=== PATIENT | male | born 1950 | race Caucasian/White ===

== ENCOUNTER 2017-05-11 16:40 | Inpatient (IN) | payer OTHER ==
[~2017-05-11] VITALS: Ht 177.8 cm; Wt 116.2 kg
[2017-05-11] MEDS ORDERED: SODIUM CHLORIDE 0.9% 1,000ML IVBOLUS ONE (17:30)
[2017-05-11] MEDS ORDERED: SODIUM CHLORIDE FLUSH 10ML SYR IVF ONE (17:30)
[2017-05-11] MEDS ORDERED: PANT40TA5 PO (17:31)
[2017-05-11] MEDS ORDERED: INSU100V8 SQ (17:31)
[2017-05-11] MEDS ORDERED: METF500T PO (17:31)
[2017-05-11] MEDS ORDERED: AMLO10TA4 PO (17:31)
[2017-05-11] MEDS ORDERED: TAMS-11 PO (17:31)
[2017-05-11] MEDS ORDERED: CYCL1DRO EACHEYE (17:31)
[2017-05-11] MEDS ORDERED: METO25TA35 PO (17:31)
[2017-05-11] MEDS ORDERED: ATOR20TA9 PO (17:31)
[2017-05-11] MEDS ORDERED: GLIP5TAB3 PO (17:31)
[2017-05-11] MEDS ORDERED: LISI20TA PO (17:31)
[2017-05-11] MEDS ORDERED: GABA300C10 PO (17:31)
[2017-05-11 17:54] LABS: BASOPHILS # (AUTO) 0.02 x10^3/uL (0-0.1); BASOPHILS % (AUTO) 0 % (0-1); EOSINOPHILS % (AUTO) 0 % (1-7); LYMPHOCYTES # (AUTO) 1.66 x10^3/uL (1-3.4); LYMPHOCYTES % (AUTO) 12 % (22-44); MD NO; MEAN CORPUSCULAR HEMOGLOBIN 26.6 pg (27.5-34.5); MEAN CORPUSCULAR HGB CONC 32.9 g/dL (33.2-36.2); MEAN CORPUSCULAR VOLUME 81.1 fL (81-97); MONOCYTES # (AUTO) 0.86 x10^3/uL (0.2-0.8); MONOCYTES % (AUTO) 6 % (2-9); NEUTROPHILS # (AUTO) 10.85 x10^3/uL (1.8-6.8); NEUTROPHILS % (AUTO) 81 % (42-75); PLATELET COUNT 294 x10^3/uL (130-400); RED BLOOD COUNT 4.81 x10^6/uL (4.38-5.82); RED CELL DISTRIBUTION WIDTH 15.9 % (9.4-14.8)
[2017-05-11 18:06] LABS: ALANINE AMINOTRANSFERASE 19 U/L (12-78); ALBUMIN 3.5 g/dL (3.4-5.0); ANION GAP 11 mmol/L (5-15); CALCIUM 9.6 mg/dL (8.5-10.1); CHLORIDE 105 mmol/L (98-107); CREATININE 1.43 mg/dL (0.7-1.3)
[2017-05-11 18:10] LABS: ALKALINE PHOSPHATASE 103 U/L (45-117); BILIRUBIN,TOTAL 0.7 mg/dL (0.2-1.0); TOTAL PROTEIN 8.2 g/dL (6.4-8.2); TROPONIN I < 0.015 ng/mL (0.000-0.045)
[2017-05-11] MEDS ORDERED: OMNIPAQUE 350 MG/ML, 100ML BOTTLE ONE (20:00)
[2017-05-11 20:30] LABS: MICROSCOPIC AUTO
[2017-05-11 20:35] LABS: CULTURE INDICATED? NO
[2017-05-11] MEDS ORDERED: ONDANSETRON 2MG/ML, 2ML IVPush ONE (21:30)
[2017-05-11] MEDS ORDERED: HYDROmorphone 1 MG/ML, 1ML IVPush PRN (21:30)
[2017-05-11] MEDS ORDERED: ONDANSETRON 2MG/ML, 2ML ONE (21:51)
[2017-05-11] MEDS ORDERED: DILTIAZEM 5 MG/ML, 5ML ONE (21:51)
[2017-05-11] MEDS ORDERED: HYDROmorphone 1 MG/ML, 1ML ONE (21:51)
[2017-05-11] MEDS ORDERED: DILTIAZEM 5 MG/ML, 5ML IVPush ONE (22:00)
[2017-05-11] MEDS ORDERED: LABETALOL 5MG/ML, 20ML IVPush PRN (23:00)
[2017-05-11] MEDS ORDERED: TEMAZEPAM 15 MG CAPSULE PO PRN (23:00)
[2017-05-11] MEDS ORDERED: ONDANSETRON ODT 4 MG PO PRN (23:00)
[2017-05-12 00:04] VITALS: BP 153/75
[2017-05-12] MEDS ORDERED: OXYC5CAP2 PO (00:13)
[2017-05-12] MEDS ORDERED: ENOXAPARIN 120MG/0.8ML SQ SCH (01:00)
[2017-05-12] MEDS: DILTIAZEM 125 MG in SODIUM CHLORIDE 0.9% 100 ML IV SCH ×2 (01:23→16:01)
[2017-05-12 01:36] VITALS: BP 155/81
[2017-05-12] MEDS: OXYcodone IR 5MG TABLET PO PRN ×2 (02:16→13:15)
[2017-05-12 02:50] VITALS: BP 152/82
[2017-05-12 05:14] LABS: BASOPHILS # (AUTO) 0.21 x10^3/uL (0-0.1); BASOPHILS % (AUTO) 2 % (0-1); EOSINOPHILS # (AUTO) 0.01 x10^3/uL (0-0.4); EOSINOPHILS % (AUTO) 0 % (1-7); LYMPHOCYTES # (AUTO) 1.76 x10^3/uL (1-3.4); LYMPHOCYTES % (AUTO) 13 % (22-44); MD NO; MEAN CORPUSCULAR HEMOGLOBIN 26.7 pg (27.5-34.5); MEAN CORPUSCULAR VOLUME 80.9 fL (81-97); MONOCYTES % (AUTO) 8 % (2-9); NEUTROPHILS # (AUTO) 10.75 x10^3/uL (1.8-6.8); NEUTROPHILS % (AUTO) 78 % (42-75); PLATELET COUNT 269 x10^3/uL (130-400); RED BLOOD COUNT 4.64 x10^6/uL (4.38-5.82); RED CELL DISTRIBUTION WIDTH 15.8 % (9.4-14.8)
[2017-05-12 05:24] LABS: ANION GAP 10 mmol/L (5-15); CALCIUM 9.3 mg/dL (8.5-10.1); CHLORIDE 104 mmol/L (98-107); CREATININE 1.13 mg/dL (0.7-1.3)
[2017-05-12 06:57] VITALS: BP 155/85
[2017-05-12] MEDS: INSULIN GLARGINE 100 UNITS/ML, PEN SQ-INSULIN SCH ×2 (08:30→23:09)
[2017-05-12] MEDS ORDERED: DILTIAZEM 5 MG/ML, 5ML IVPush ONE (08:30)
[2017-05-12] MEDS ORDERED: POTASSIUM CHLORIDE 20 MEQ TAB.ER.PRT PO ONE (08:30)
[2017-05-12] MEDS ORDERED: OXYcodone IR 5MG TABLET PO PRN (08:30)
[2017-05-12] MEDS ORDERED: METOPROLOL TARTRATE 25 MG TABLET PO SCH (09:00)
[2017-05-12] MEDS: METOPROLOL TARTRATE 25 MG TABLET PO SCH ×3 (09:00→22:41)
[2017-05-12] MEDS ORDERED: MAGNESIUM SULFATE PMX 2GM/50ML 50 ML IV ONE (09:00)
[2017-05-12] MEDS ORDERED: POTASSIUM PHOSPHATE 44 MEQ in SODIUM CHLORIDE 0.9% 500 ML IV ONE (09:00)
[2017-05-12] MEDS: CYCLOSPORINE EACHEYE SCH ×2 (09:00→19:40)
[2017-05-12 09:17] LABS: % IRON SATURATION 5 % (20-55); IRON LEVEL 17 mcg/dL (65-175); TOTAL IRON BINDING CAPACITY 322 mcg/dL (250-450)
[2017-05-12] MEDS: TAMSULOSIN 0.4 MG CAP.ER.24H PO SCH (10:11)
[2017-05-12] MEDS: PANTOPROZOLE 40MG TABLET PO SCH (10:11)
[2017-05-12] MEDS: GABAPENTIN 300 MG CAPSULE PO SCH ×3 (10:14→22:41)
[2017-05-12] MEDS: AMLODIPINE 5 MG TABLET PO SCH (10:14)
[2017-05-12] MEDS: LISINOPRIL 20 MG TABLET PO SCH (10:15)
[2017-05-12 12:32] VITALS: BP 139/83
[2017-05-12] MEDS ORDERED: DILTIAZEM 5 MG/ML, 5ML ONE (13:07)
[2017-05-12] MEDS: APIXABAN 5 MG TABLET PO SCH ×2 (13:10→22:40)
[2017-05-12] MEDS ORDERED: GADOBUTROL 10 MMOL/10 ML PFS ONE (14:26)
[2017-05-12] MEDS: metFORMIN XR 500 MG TAB.ER.24H PO SCH (18:02)
[2017-05-12 19:39] VITALS: BP 121/69
[2017-05-12] MEDS: ATORVASTATIN 20 MG TABLET PO SCH (22:41)
[2017-05-13 00:58] VITALS: BP 105/59
[2017-05-13] MEDS: METOPROLOL TARTRATE 25 MG TABLET PO SCH ×4 (04:27→22:33)
[2017-05-13 04:28] VITALS: BP 111/68
[2017-05-13 05:28] LABS: CHLORIDE 106 mmol/L (98-107)
[2017-05-13 05:35] LABS: BASOPHILS # (AUTO) 0.04 x10^3/uL (0-0.1); BASOPHILS % (AUTO) 0 % (0-1); EOSINOPHILS # (AUTO) 0.06 x10^3/uL (0-0.4); EOSINOPHILS % (AUTO) 1 % (1-7); LYMPHOCYTES # (AUTO) 1.59 x10^3/uL (1-3.4); LYMPHOCYTES % (AUTO) 13 % (22-44); MD NO; MEAN CORPUSCULAR HEMOGLOBIN 26.5 pg (27.5-34.5); MEAN CORPUSCULAR HGB CONC 32.5 g/dL (33.2-36.2); MEAN CORPUSCULAR VOLUME 81.8 fL (81-97); MEAN PLATELET VOLUME 8.2 fL (7.4-10.4); MONOCYTES # (AUTO) 1.08 x10^3/uL (0.2-0.8); MONOCYTES % (AUTO) 9 % (2-9); NEUTROPHILS % (AUTO) 77 % (42-75); PLATELET COUNT 255 x10^3/uL (130-400); RED BLOOD COUNT 4.15 x10^6/uL (4.38-5.82); RED CELL DISTRIBUTION WIDTH 15.4 % (9.4-14.8)
[2017-05-13 05:45] LABS: ANION GAP 9 mmol/L (5-15); CALCIUM 8.9 mg/dL (8.5-10.1); CREATININE 1.21 mg/dL (0.7-1.3)
[2017-05-13 06:43] VITALS: BP 130/75
[2017-05-13] MEDS: CYCLOSPORINE EACHEYE SCH ×2 (08:29→21:00)
[2017-05-13] MEDS: APIXABAN 5 MG TABLET PO SCH ×2 (09:09→22:32)
[2017-05-13] MEDS: PANTOPROZOLE 40MG TABLET PO SCH (09:09)
[2017-05-13] MEDS: LISINOPRIL 20 MG TABLET PO SCH (09:09)
[2017-05-13] MEDS: TAMSULOSIN 0.4 MG CAP.ER.24H PO SCH (09:09)
[2017-05-13] MEDS: AMLODIPINE 5 MG TABLET PO SCH (09:10)
[2017-05-13] MEDS: GABAPENTIN 300 MG CAPSULE PO SCH ×3 (09:10→22:32)
[2017-05-13 10:45] VITALS: BP 102/68
[2017-05-13] MEDS: ACETAMINOPHEN 325 MG TABLET PO PRN (12:59)
[2017-05-13 13:25] VITALS: BP 111/70
[2017-05-13] MEDS: metFORMIN XR 500 MG TAB.ER.24H PO SCH (16:14)
[2017-05-13 19:13] VITALS: BP 115/73
[2017-05-13] MEDS: INSULIN GLARGINE 100 UNITS/ML, PEN SQ-INSULIN SCH (21:00)
[2017-05-13] MEDS: ATORVASTATIN 20 MG TABLET PO SCH (22:33)
[2017-05-14 00:36] VITALS: BP 115/71
[2017-05-14] MEDS: METOPROLOL TARTRATE 25 MG TABLET PO SCH ×4 (04:50→21:25)
[2017-05-14 06:51] VITALS: BP 130/80
[2017-05-14] MEDS: CYCLOSPORINE EACHEYE SCH ×2 (09:12→21:00)
[2017-05-14] MEDS: TAMSULOSIN 0.4 MG CAP.ER.24H PO SCH (09:22)
[2017-05-14] MEDS: GABAPENTIN 300 MG CAPSULE PO SCH ×3 (09:22→21:25)
[2017-05-14] MEDS: APIXABAN 5 MG TABLET PO SCH ×2 (09:22→21:25)
[2017-05-14] MEDS: AMLODIPINE 5 MG TABLET PO SCH (09:22)
[2017-05-14] MEDS: LISINOPRIL 20 MG TABLET PO SCH (09:22)
[2017-05-14] MEDS: PANTOPROZOLE 40MG TABLET PO SCH (09:22)
[2017-05-14 13:20] VITALS: BP 120/81
[2017-05-14] MEDS: metFORMIN XR 500 MG TAB.ER.24H PO SCH (16:54)
[2017-05-14] MEDS: KETOROLAC 30 MG/1 ML IVPush PRN (17:26)
[2017-05-14 21:12] VITALS: BP 134/77
[2017-05-14] MEDS: ATORVASTATIN 20 MG TABLET PO SCH (21:25)
[2017-05-14] MEDS: INSULIN GLARGINE 100 UNITS/ML, PEN SQ-INSULIN SCH ×2 (21:27→21:34)
[2017-05-15 00:55] VITALS: BP 117/73
[2017-05-15] MEDS: METOPROLOL TARTRATE 25 MG TABLET PO SCH ×4 (03:19→21:17)
[2017-05-15 06:54] VITALS: BP 125/77
[2017-05-15] MEDS: AMLODIPINE 5 MG TABLET PO SCH (09:00)
[2017-05-15] MEDS: APIXABAN 5 MG TABLET PO SCH ×2 (09:00→21:17)
[2017-05-15] MEDS: PANTOPROZOLE 40MG TABLET PO SCH (09:00)
[2017-05-15] MEDS: TAMSULOSIN 0.4 MG CAP.ER.24H PO SCH (09:00)
[2017-05-15] MEDS: GABAPENTIN 300 MG CAPSULE PO SCH ×3 (09:39→21:17)
[2017-05-15] MEDS: LISINOPRIL 20 MG TABLET PO SCH (09:39)
[2017-05-15] MEDS: CYCLOSPORINE EACHEYE SCH ×2 (09:40→21:17)
[2017-05-15] MEDS: INSULIN REGULAR 100 UNITS/ML, 3ML VIAL SQ-INSULIN SCH ×3 (12:09→21:17)
[2017-05-15 14:26] VITALS: BP 126/84
[2017-05-15] MEDS: ACETAMINOPHEN 325 MG TABLET PO PRN ×2 (16:48→21:17)
[2017-05-15] MEDS: DOCUSATE 100 MG CAPSULE PO PRN (16:48)
[2017-05-15 19:24] VITALS: BP 108/68
[2017-05-15] MEDS: ATORVASTATIN 20 MG TABLET PO SCH (21:17)
[2017-05-16 02:00] VITALS: BP 124/74
[2017-05-16] MEDS: METOPROLOL TARTRATE 25 MG TABLET PO SCH ×4 (03:32→21:48)
[2017-05-16] MEDS: ACETAMINOPHEN 325 MG TABLET PO PRN ×2 (05:57→19:28)
[2017-05-16] MEDS: INSULIN REGULAR 100 UNITS/ML, 3ML VIAL SQ-INSULIN SCH ×4 (07:00→19:46)
[2017-05-16 07:15] VITALS: BP 122/73
[2017-05-16 07:36] LABS: BASOPHILS # (AUTO) 0.07 x10^3/uL (0-0.1); BASOPHILS % (AUTO) 1 % (0-1); EOSINOPHILS % (AUTO) 2 % (1-7); HCT (SEDRATE) 34.6 % (39.2-51.8); LYMPHOCYTES % (AUTO) 14 % (22-44); MD NO; MEAN CORPUSCULAR HEMOGLOBIN 26.3 pg (27.5-34.5); MEAN CORPUSCULAR HGB CONC 32.1 g/dL (33.2-36.2); MEAN PLATELET VOLUME 8.1 fL (7.4-10.4); MONOCYTES # (AUTO) 0.86 x10^3/uL (0.2-0.8); MONOCYTES % (AUTO) 7 % (2-9); NEUTROPHILS # (AUTO) 9.92 x10^3/uL (1.8-6.8); NEUTROPHILS % (AUTO) 77 % (42-75); PLATELET COUNT 336 x10^3/uL (130-400); RED BLOOD COUNT 4.21 x10^6/uL (4.38-5.82); RED CELL DISTRIBUTION WIDTH 15.2 % (9.4-14.8)
[2017-05-16 07:43] LABS: ANION GAP 11 mmol/L (5-15); CALCIUM 9.1 mg/dL (8.5-10.1); CHLORIDE 106 mmol/L (98-107); CREATININE 1.19 mg/dL (0.7-1.3)
[2017-05-16] MEDS: APIXABAN 5 MG TABLET PO SCH ×2 (08:17→19:45)
[2017-05-16] MEDS: TAMSULOSIN 0.4 MG CAP.ER.24H PO SCH (08:17)
[2017-05-16] MEDS: AMLODIPINE 5 MG TABLET PO SCH (08:17)
[2017-05-16] MEDS: LISINOPRIL 20 MG TABLET PO SCH (08:17)
[2017-05-16] MEDS: PANTOPROZOLE 40MG TABLET PO SCH (08:17)
[2017-05-16] MEDS: CYCLOSPORINE EACHEYE SCH ×2 (08:17→19:46)
[2017-05-16] MEDS: GABAPENTIN 300 MG CAPSULE PO SCH ×3 (08:17→19:45)
[2017-05-16] MEDS: DOCUSATE 100 MG CAPSULE PO PRN (11:06)
[2017-05-16 17:09] VITALS: BP 124/77
[2017-05-16 18:00] VITALS: BP 155/66
[2017-05-16 19:15] VITALS: BP 125/77
[2017-05-16] MEDS: ATORVASTATIN 20 MG TABLET PO SCH (19:45)
[2017-05-16] MEDS: INSULIN GLARGINE 100 UNITS/ML, PEN SQ-INSULIN SCH (19:46)
[2017-05-17 01:00] VITALS: BP 125/78
[2017-05-17] MEDS: METOPROLOL TARTRATE 25 MG TABLET PO SCH ×4 (04:25→20:02)
[2017-05-17 07:35] VITALS: BP 116/75
[2017-05-17] MEDS: INSULIN REGULAR 100 UNITS/ML, 3ML VIAL SQ-INSULIN SCH ×4 (08:04→20:02)
[2017-05-17 08:11] VITALS: BP 124/79
[2017-05-17] MEDS: AMLODIPINE 5 MG TABLET PO SCH (08:13)
[2017-05-17] MEDS: PANTOPROZOLE 40MG TABLET PO SCH (08:13)
[2017-05-17] MEDS: APIXABAN 5 MG TABLET PO SCH ×2 (08:13→20:01)
[2017-05-17] MEDS: predniSONE 50MG TABLET PO SCH (08:13)
[2017-05-17] MEDS: TAMSULOSIN 0.4 MG CAP.ER.24H PO SCH (08:14)
[2017-05-17] MEDS: LISINOPRIL 20 MG TABLET PO SCH (08:14)
[2017-05-17] MEDS: GABAPENTIN 300 MG CAPSULE PO SCH ×3 (08:14→20:01)
[2017-05-17] MEDS: CYCLOSPORINE EACHEYE SCH ×2 (08:14→20:03)
[2017-05-17] MEDS ORDERED: POLYETHYLENE GLYCOL 17 GM PACKET PO ONE (12:00)
[2017-05-17 12:40] VITALS: BP 120/77
[2017-05-17 16:28] VITALS: BP 110/71
[2017-05-17] MEDS: ATORVASTATIN 20 MG TABLET PO SCH (20:01)
[2017-05-17] MEDS: INSULIN GLARGINE 100 UNITS/ML, PEN SQ-INSULIN SCH (20:02)
[2017-05-17 20:20] VITALS: BP 109/68
[2017-05-18 00:56] VITALS: BP 126/77
[2017-05-18] MEDS: METOPROLOL TARTRATE 25 MG TABLET PO SCH ×4 (02:23→22:05)
[2017-05-18] MEDS: INSULIN REGULAR 100 UNITS/ML, 3ML VIAL SQ-INSULIN SCH ×4 (07:00→22:06)
[2017-05-18] MEDS ORDERED: FENTANYL PF 250 MCG/5ML ONE (07:29)
[2017-05-18] MEDS ORDERED: LIDOCAINE GEL 2%, 5ML ONE (07:29)
[2017-05-18] MEDS ORDERED: MIDAZOLAM 1 MG/ML, 2ML ONE (07:29)
[2017-05-18] MEDS ORDERED: HEPARIN 1,000 UNITS/ML, 30ML ONE (07:38)
[2017-05-18 07:40] VITALS: BP 132/81
[2017-05-18] MEDS ORDERED: methylPREDNISolone *ACETATE* 40 MG/ML ONE (07:50)
[2017-05-18] MEDS ORDERED: THROMBIN 5,000 UNIT VIAL TP ONE (07:50)
[2017-05-18] MEDS ORDERED: EPINEPHRINE 1 MG/ML, 1ML ONE (07:50)
[2017-05-18] MEDS ORDERED: BACITRACIN 50,000 UNIT ONE (07:50)
[2017-05-18] MEDS ORDERED: BUPIVACAINE/PF 0.5% ONE (07:50)
[2017-05-18] MEDS ORDERED: BACITRACIN OINT 500U/GM, 15 GM ONE (07:50)
[2017-05-18] MEDS: PANTOPROZOLE 40MG TABLET PO SCH (08:30)
[2017-05-18] MEDS: GABAPENTIN 300 MG CAPSULE PO SCH ×3 (08:30→22:05)
[2017-05-18] MEDS: TAMSULOSIN 0.4 MG CAP.ER.24H PO SCH (08:30)
[2017-05-18] MEDS: AMLODIPINE 5 MG TABLET PO SCH (08:30)
[2017-05-18] MEDS: LISINOPRIL 20 MG TABLET PO SCH (08:30)
[2017-05-18] MEDS: CYCLOSPORINE EACHEYE SCH ×2 (08:31→22:03)
[2017-05-18] MEDS: predniSONE 50MG TABLET PO SCH (08:31)
[2017-05-18] MEDS: KETOROLAC 30 MG/1 ML IVPush PRN (08:38)
[2017-05-18] MEDS ORDERED: POLYETHYLENE GLYCOL 17 GM PACKET PO PRN (09:00)
[2017-05-18 14:33] VITALS: BP 129/78
[2017-05-18 20:00] VITALS: BP 106/67
[2017-05-18] MEDS: ACETAMINOPHEN 325 MG TABLET PO PRN (22:04)
[2017-05-18] MEDS: ATORVASTATIN 20 MG TABLET PO SCH (22:04)
[2017-05-18] MEDS: INSULIN GLARGINE 100 UNITS/ML, PEN SQ-INSULIN SCH (22:06)
[2017-05-19 02:00] VITALS: BP 108/64
[2017-05-19] MEDS: METOPROLOL TARTRATE 25 MG TABLET PO SCH ×4 (03:30→20:09)
[2017-05-19 06:50] VITALS: BP 105/71
[2017-05-19] MEDS: INSULIN REGULAR 100 UNITS/ML, 3ML VIAL SQ-INSULIN SCH ×4 (07:54→20:12)
[2017-05-19] MEDS: predniSONE 50MG TABLET PO SCH (07:55)
[2017-05-19] MEDS: PANTOPROZOLE 40MG TABLET PO SCH (07:55)
[2017-05-19] MEDS: ACETAMINOPHEN 325 MG TABLET PO PRN (07:55)
[2017-05-19] MEDS: TAMSULOSIN 0.4 MG CAP.ER.24H PO SCH (07:55)
[2017-05-19] MEDS: GABAPENTIN 300 MG CAPSULE PO SCH ×3 (07:55→20:09)
[2017-05-19] MEDS: LISINOPRIL 20 MG TABLET PO SCH (07:56)
[2017-05-19] MEDS: AMLODIPINE 5 MG TABLET PO SCH (07:56)
[2017-05-19] MEDS: CYCLOSPORINE EACHEYE SCH ×2 (07:58→19:56)
[2017-05-19 12:55] VITALS: BP 111/70
[2017-05-19 19:32] VITALS: BP 110/71
[2017-05-19] MEDS: ATORVASTATIN 20 MG TABLET PO SCH (20:09)
[2017-05-19] MEDS: INSULIN GLARGINE 100 UNITS/ML, PEN SQ-INSULIN SCH (20:12)
[2017-05-20 01:47] VITALS: BP 122/78
[2017-05-20] MEDS: METOPROLOL TARTRATE 25 MG TABLET PO SCH ×4 (03:06→23:02)
[2017-05-20] MEDS: ACETAMINOPHEN 325 MG TABLET PO PRN ×3 (03:07→19:53)
[2017-05-20] MEDS: INSULIN REGULAR 100 UNITS/ML, 3ML VIAL SQ-INSULIN SCH ×4 (07:00→19:55)
[2017-05-20] MEDS: CYCLOSPORINE EACHEYE SCH ×2 (08:04→19:45)
[2017-05-20] MEDS: AMLODIPINE 5 MG TABLET PO SCH (08:04)
[2017-05-20] MEDS: GABAPENTIN 300 MG CAPSULE PO SCH ×3 (08:04→23:02)
[2017-05-20] MEDS: LISINOPRIL 20 MG TABLET PO SCH (08:04)
[2017-05-20] MEDS: PANTOPROZOLE 40MG TABLET PO SCH (08:04)
[2017-05-20] MEDS: TAMSULOSIN 0.4 MG CAP.ER.24H PO SCH (08:04)
[2017-05-20] MEDS: predniSONE 50MG TABLET PO SCH (08:04)
[2017-05-20 08:35] VITALS: BP 109/71
[2017-05-20 13:51] VITALS: BP 112/70
[2017-05-20 19:39] VITALS: BP 119/76
[2017-05-20] MEDS: ATORVASTATIN 20 MG TABLET PO SCH (19:53)
[2017-05-20] MEDS: INSULIN GLARGINE 100 UNITS/ML, PEN SQ-INSULIN SCH (19:54)
[2017-05-21 01:26] VITALS: BP 114/74
[2017-05-21] MEDS: ACETAMINOPHEN 325 MG TABLET PO PRN ×2 (01:39→19:50)
[2017-05-21 04:58] VITALS: BP 112/73
[2017-05-21] MEDS: METOPROLOL TARTRATE 25 MG TABLET PO SCH ×4 (05:02→20:18)
[2017-05-21] MEDS: INSULIN REGULAR 100 UNITS/ML, 3ML VIAL SQ-INSULIN SCH ×4 (07:50→20:19)
[2017-05-21 08:22] VITALS: BP 123/72
[2017-05-21] MEDS: GABAPENTIN 300 MG CAPSULE PO SCH ×2 (10:50→17:25)
[2017-05-21] MEDS: AMLODIPINE 5 MG TABLET PO SCH (10:50)
[2017-05-21] MEDS: PANTOPROZOLE 40MG TABLET PO SCH (10:50)
[2017-05-21] MEDS: LISINOPRIL 20 MG TABLET PO SCH (10:50)
[2017-05-21] MEDS: predniSONE 50MG TABLET PO SCH (10:50)
[2017-05-21] MEDS: TAMSULOSIN 0.4 MG CAP.ER.24H PO SCH (10:50)
[2017-05-21] MEDS: CYCLOSPORINE EACHEYE SCH ×2 (10:51→19:50)
[2017-05-21 14:16] VITALS: BP 112/74
[2017-05-21 15:55] LABS: ANA SCREEN NEGATIVE (Negative)
[2017-05-21 18:50] VITALS: BP 106/70
[2017-05-21] MEDS: ATORVASTATIN 20 MG TABLET PO SCH (20:18)
[2017-05-21] MEDS: INSULIN GLARGINE 100 UNITS/ML, PEN SQ-INSULIN SCH (20:18)
[2017-05-22 01:49] VITALS: BP 137/77
[2017-05-22] MEDS: GABAPENTIN 300 MG CAPSULE PO SCH ×4 (01:50→20:46)
[2017-05-22] MEDS: METOPROLOL TARTRATE 25 MG TABLET PO SCH ×4 (01:57→23:23)
[2017-05-22] MEDS: ACETAMINOPHEN 325 MG TABLET PO PRN ×3 (01:58→20:46)
[2017-05-22 04:45] LABS: BASOPHILS # (AUTO) 0.08 x10^3/uL (0-0.1); BASOPHILS % (AUTO) 1 % (0-1); EOSINOPHILS # (AUTO) 0.15 x10^3/uL (0-0.4); EOSINOPHILS % (AUTO) 1 % (1-7); LYMPHOCYTES # (AUTO) 3.08 x10^3/uL (1-3.4); LYMPHOCYTES % (AUTO) 21 % (22-44); MD NO; MEAN CORPUSCULAR HEMOGLOBIN 26.4 pg (27.5-34.5); MEAN CORPUSCULAR HGB CONC 32.6 g/dL (33.2-36.2); MEAN CORPUSCULAR VOLUME 80.8 fL (81-97); MEAN PLATELET VOLUME 8.5 fL (7.4-10.4); MONOCYTES # (AUTO) 0.88 x10^3/uL (0.2-0.8); MONOCYTES % (AUTO) 6 % (2-9); NEUTROPHILS # (AUTO) 10.59 x10^3/uL (1.8-6.8); NEUTROPHILS % (AUTO) 72 % (42-75); PLATELET COUNT 582 x10^3/uL (130-400); RED BLOOD COUNT 4.65 x10^6/uL (4.38-5.82); RED CELL DISTRIBUTION WIDTH 15.6 % (9.4-14.8)
[2017-05-22 04:50] LABS: INTERNATIONAL NORMALIZED RATIO 1.08 (0.93-1.1); PROTHROMBIN TIME 11.1 Seconds (9.6-11.5)
[2017-05-22 04:56] LABS: ANION GAP 7 mmol/L (5-15); CALCIUM 9.4 mg/dL (8.5-10.1); CHLORIDE 108 mmol/L (98-107)
[2017-05-22] MEDS: INSULIN REGULAR 100 UNITS/ML, 3ML VIAL SQ-INSULIN SCH ×4 (07:00→21:00)
[2017-05-22 08:11] VITALS: BP 101/69
[2017-05-22] MEDS: TAMSULOSIN 0.4 MG CAP.ER.24H PO SCH (08:57)
[2017-05-22] MEDS: LISINOPRIL 20 MG TABLET PO SCH (08:57)
[2017-05-22] MEDS: PANTOPROZOLE 40MG TABLET PO SCH (08:57)
[2017-05-22] MEDS: predniSONE 50MG TABLET PO SCH (08:57)
[2017-05-22] MEDS: CYCLOSPORINE EACHEYE SCH ×2 (08:58→20:47)
[2017-05-22] MEDS: AMLODIPINE 5 MG TABLET PO SCH (08:58)
[2017-05-22 14:52] VITALS: BP 116/72
[2017-05-22 18:32] VITALS: BP 100/56
[2017-05-22] MEDS: ATORVASTATIN 20 MG TABLET PO SCH (20:46)
[2017-05-22] MEDS: INSULIN GLARGINE 100 UNITS/ML, PEN SQ-INSULIN SCH (21:29)
[2017-05-22 23:21] VITALS: BP 116/75
[2017-05-23 00:15] VITALS: BP 130/76
[2017-05-23 05:43] VITALS: BP 123/71
[2017-05-23] MEDS: METOPROLOL TARTRATE 25 MG TABLET PO SCH ×4 (05:46→22:03)
[2017-05-23] MEDS: INSULIN REGULAR 100 UNITS/ML, 3ML VIAL SQ-INSULIN SCH ×4 (07:00→20:47)
[2017-05-23 07:42] VITALS: BP 124/79
[2017-05-23] MEDS: SODIUM CHLORIDE 0.9% 1,000 ML IV SCH ×2 (08:32→22:04)
[2017-05-23] MEDS: predniSONE 50MG TABLET PO SCH (09:00)
[2017-05-23] MEDS: CYCLOSPORINE EACHEYE SCH ×2 (09:00→20:48)
[2017-05-23] MEDS: AMLODIPINE 5 MG TABLET PO SCH (09:01)
[2017-05-23] MEDS: GABAPENTIN 300 MG CAPSULE PO SCH ×3 (09:01→20:47)
[2017-05-23] MEDS: TAMSULOSIN 0.4 MG CAP.ER.24H PO SCH (09:01)
[2017-05-23] MEDS: PANTOPROZOLE 40MG TABLET PO SCH (09:02)
[2017-05-23] MEDS: LISINOPRIL 20 MG TABLET PO SCH (09:02)
[2017-05-23] MEDS: ACETAMINOPHEN 325 MG TABLET PO PRN ×2 (09:02→20:47)
[2017-05-23 14:30] VITALS: BP 118/74
[2017-05-23 14:36] LABS: HEMOGLOBIN A1C 6.6 % (4.2-6.3)
[2017-05-23 19:19] VITALS: BP 136/77
[2017-05-23] MEDS: INSULIN GLARGINE 100 UNITS/ML, PEN SQ-INSULIN SCH (20:47)
[2017-05-23] MEDS: ATORVASTATIN 20 MG TABLET PO SCH (20:47)
[2017-05-24 01:30] VITALS: BP 143/81
[2017-05-24] MEDS: METOPROLOL TARTRATE 25 MG TABLET PO SCH ×4 (04:59→22:41)
[2017-05-24 05:37] LABS: BASOPHILS # (AUTO) 0.08 x10^3/uL (0-0.1); BASOPHILS % (AUTO) 1 % (0-1); EOSINOPHILS # (AUTO) 0.21 x10^3/uL (0-0.4); EOSINOPHILS % (AUTO) 2 % (1-7); LYMPHOCYTES # (AUTO) 2.91 x10^3/uL (1-3.4); LYMPHOCYTES % (AUTO) 24 % (22-44); MD NO; MEAN CORPUSCULAR HEMOGLOBIN 25.6 pg (27.5-34.5); MEAN CORPUSCULAR HGB CONC 31.6 g/dL (33.2-36.2); MEAN CORPUSCULAR VOLUME 81.2 fL (81-97); MEAN PLATELET VOLUME 8.1 fL (7.4-10.4); MONOCYTES # (AUTO) 0.71 x10^3/uL (0.2-0.8); MONOCYTES % (AUTO) 6 % (2-9); NEUTROPHILS # (AUTO) 8.32 x10^3/uL (1.8-6.8); NEUTROPHILS % (AUTO) 68 % (42-75); PLATELET COUNT 569 x10^3/uL (130-400); RED BLOOD COUNT 4.68 x10^6/uL (4.38-5.82); RED CELL DISTRIBUTION WIDTH 15.7 % (9.4-14.8)
[2017-05-24 05:38] LABS: ANION GAP 7 mmol/L (5-15); CALCIUM 9.3 mg/dL (8.5-10.1); CHLORIDE 110 mmol/L (98-107); CREATININE 1.12 mg/dL (0.7-1.3)
[2017-05-24] MEDS: INSULIN REGULAR 100 UNITS/ML, 3ML VIAL SQ-INSULIN SCH ×4 (07:00→21:50)
[2017-05-24 07:47] VITALS: BP 130/79
[2017-05-24] MEDS: SODIUM CHLORIDE 0.9% 1,000 ML IV SCH (08:13)
[2017-05-24] MEDS: TAMSULOSIN 0.4 MG CAP.ER.24H PO SCH (08:14)
[2017-05-24] MEDS: CYCLOSPORINE EACHEYE SCH ×2 (08:14→20:58)
[2017-05-24] MEDS: predniSONE 50MG TABLET PO SCH (08:14)
[2017-05-24] MEDS: GABAPENTIN 300 MG CAPSULE PO SCH ×3 (08:14→21:50)
[2017-05-24] MEDS: PANTOPROZOLE 40MG TABLET PO SCH (08:15)
[2017-05-24] MEDS: AMLODIPINE 5 MG TABLET PO SCH (08:15)
[2017-05-24] MEDS: LISINOPRIL 20 MG TABLET PO SCH (08:15)
[2017-05-24] MEDS: ACETAMINOPHEN 325 MG TABLET PO PRN (08:32)
[2017-05-24 11:28] LABS: CLOSTRIDIUM DIFFICILE ANTIGEN NEGATIVE; CLOSTRIDIUM DIFFICILE TOXIN NEGATIVE (Negative)
[2017-05-24 13:41] VITALS: BP 116/76
[2017-05-24] MEDS ORDERED: MIDAZOLAM 1 MG/ML, 2ML ONE (13:53)
[2017-05-24] MEDS ORDERED: FENTANYL PF 250 MCG/5ML ONE (13:53)
[2017-05-24] MEDS ORDERED: PROPOFOL 10 MG/ML, 20ML ONE (13:55)
[2017-05-24] MEDS ORDERED: ROCURONIUM 10 MG/ML,10ML ONE (13:56)
[2017-05-24] MEDS ORDERED: GLYCOPYRROLATE 0.4 MG/2 ML, 2ML ONE (13:57)
[2017-05-24] MEDS ORDERED: NEOSTIGMINE 1 MG/ML, 10ML ONE (13:57)
[2017-05-24] MEDS ORDERED: SODIUM CHLORIDE 0.9% PF 10ML ONE ×3 (13:58→17:34)
[2017-05-24] MEDS ORDERED: CEFAZOLIN 1,000 MG ONE ×2 (13:58)
[2017-05-24] MEDS ORDERED: OXYcodone 5 MG/5 ML ORAL.SOL UDC PO PRN (14:30)
[2017-05-24] MEDS ORDERED: LABETALOL 5MG/ML, 20ML IV PRN (14:30)
[2017-05-24] MEDS ORDERED: hydrALAzine 20 MG/ML, 1ML IV PRN (14:30)
[2017-05-24] MEDS ORDERED: ONDANSETRON 2MG/ML, 2ML IVPush PRN (14:30)
[2017-05-24] MEDS ORDERED: PROMETHAZINE 12.5 MG SUPP PR PRN (14:30)
[2017-05-24] MEDS ORDERED: MEPERIDINE/PF 25MG/0.5ML IVPush PRN (14:30)
[2017-05-24] MEDS ORDERED: ACETAMINOPHEN 325 MG TABLET PO PRN (14:30)
[2017-05-24] MEDS ORDERED: BUPIVACAINE/PF 0.5% ONE ×2 (15:29→18:30)
[2017-05-24] MEDS ORDERED: THROMBIN 5,000 UNIT VIAL TP ONE (15:30)
[2017-05-24] MEDS ORDERED: EPINEPHRINE 1 MG/ML, 1ML ONE (15:30)
[2017-05-24] MEDS ORDERED: BACITRACIN OINT 500U/GM, 15 GM ONE (15:30)
[2017-05-24] MEDS ORDERED: BACITRACIN 50,000 UNIT ONE (15:30)
[2017-05-24] MEDS ORDERED: methylPREDNISolone *ACETATE* 40 MG/ML ONE (15:30)
[2017-05-24] MEDS ORDERED: CLINDAMYCIN 150 MG/ML, 6ML ONE ×2 (15:36→15:37)
[2017-05-24] MEDS ORDERED: PHENYLEPHRINE 10 MG/ML ONE (16:15)
[2017-05-24] MEDS ORDERED: EPHEDRINE 50 MG/ML, 1ML ONE ×2 (16:45→17:34)
[2017-05-24] MEDS ORDERED: BUPIVACAINE/PF-EPI 0.5% 1:200K INFIL ONE (17:08)
[2017-05-24] MEDS ORDERED: THROMBIN 20,000 UNIT VIAL TP ONE (18:00)
[2017-05-24] MEDS ORDERED: BUPIVACAINE/PF 0.5% INFIL ONE (18:31)
[2017-05-24] MEDS ORDERED: ACETAMINOPHEN 650 MG/20.3 ML UDC ONE (19:22)
[2017-05-24] MEDS ORDERED: OXYcodone 5 MG/5 ML ORAL.SOL UDC ONE (19:22)
[2017-05-24] MEDS ORDERED: HYDROmorphone 2 MG/ML, 1ML ONE (19:22)
[2017-05-24] MEDS: HYDROmorphone 1 MG/ML, 1ML IV PRN ×4 (19:25→20:07)
[2017-05-24] MEDS ORDERED: FENTANYL PF 100 MCG/2ML ONE (19:28)
[2017-05-24] MEDS ORDERED: CYCLOBENZAPRINE 10 MG TABLET ONE (19:29)
[2017-05-24] MEDS ORDERED: CYCLOBENZAPRINE 10 MG TABLET PO PRN (19:30)
[2017-05-24] MEDS: FENTANYL PF 100 MCG/2ML IV PRN ×2 (19:30→19:46)
[2017-05-24 20:34] VITALS: BP 95/62
[2017-05-24] MEDS ORDERED: CLINDAMYCIN 150 MG/ML, 6ML IM SCH (21:00)
[2017-05-24] MEDS: ATORVASTATIN 20 MG TABLET PO SCH (21:50)
[2017-05-24] MEDS: INSULIN GLARGINE 100 UNITS/ML, PEN SQ-INSULIN SCH (21:51)
[2017-05-25 00:15] VITALS: BP 91/55
[2017-05-25] MEDS: SODIUM CHLORIDE 0.9% 1,000 ML IV SCH ×3 (01:10→21:18)
[2017-05-25] MEDS ORDERED: SODIUM CHLORIDE 0.9%, 500ML IVBOLUS ONE (03:30)
[2017-05-25 03:54] VITALS: BP 118/77
[2017-05-25] MEDS: METOPROLOL TARTRATE 25 MG TABLET PO SCH ×4 (04:10→22:56)
[2017-05-25 04:33] LABS: ANION GAP 8 mmol/L (5-15); CALCIUM 8.1 mg/dL (8.5-10.1); CHLORIDE 111 mmol/L (98-107)
[2017-05-25 04:34] LABS: CREATININE 1.36 mg/dL (0.7-1.3)
[2017-05-25 04:42] LABS: BASOPHILS # (AUTO) 0.05 x10^3/uL (0-0.1); BASOPHILS % (AUTO) 0 % (0-1); EOSINOPHILS # (AUTO) 0.07 x10^3/uL (0-0.4); EOSINOPHILS % (AUTO) 1 % (1-7); LYMPHOCYTES # (AUTO) 1.99 x10^3/uL (1-3.4); LYMPHOCYTES % (AUTO) 14 % (22-44); MD NO; MEAN CORPUSCULAR HEMOGLOBIN 26.3 pg (27.5-34.5); MEAN CORPUSCULAR VOLUME 82.2 fL (81-97); MEAN PLATELET VOLUME 8.1 fL (7.4-10.4); MONOCYTES # (AUTO) 0.65 x10^3/uL (0.2-0.8); MONOCYTES % (AUTO) 5 % (2-9); NEUTROPHILS # (AUTO) 11.21 x10^3/uL (1.8-6.8); NEUTROPHILS % (AUTO) 80 % (42-75); PLATELET COUNT 488 x10^3/uL (130-400); RED BLOOD COUNT 3.93 x10^6/uL (4.38-5.82); RED CELL DISTRIBUTION WIDTH 15.9 % (9.4-14.8)
[2017-05-25] MEDS: INSULIN REGULAR 100 UNITS/ML, 3ML VIAL SQ-INSULIN SCH ×4 (07:00→20:33)
[2017-05-25] MEDS: predniSONE 50MG TABLET PO SCH (07:38)
[2017-05-25] MEDS: CYCLOSPORINE EACHEYE SCH ×2 (07:42→20:34)
[2017-05-25 08:30] VITALS: BP_SYST 101; BP_SYST 110; BP_DIAS 62; BP_DIAS 75
[2017-05-25] MEDS ORDERED: OXYcodone IR 5MG TABLET PO PRN (09:00)
[2017-05-25] MEDS: AMLODIPINE 5 MG TABLET PO SCH (10:52)
[2017-05-25] MEDS: CEFAZOLIN PMX 2GM/50ML 50 ML IVPB SCH ×2 (10:52→19:00)
[2017-05-25] MEDS: GABAPENTIN 300 MG CAPSULE PO SCH ×3 (10:52→20:32)
[2017-05-25] MEDS: TAMSULOSIN 0.4 MG CAP.ER.24H PO SCH (10:52)
[2017-05-25] MEDS: LISINOPRIL 20 MG TABLET PO SCH (10:53)
[2017-05-25] MEDS: PANTOPROZOLE 40MG TABLET PO SCH (10:53)
[2017-05-25] MEDS: OXYcodone IR 5MG TABLET PO PRN ×4 (11:16→22:56)
[2017-05-25 14:08] VITALS: BP 107/68
[2017-05-25 19:46] VITALS: BP 123/71
[2017-05-25] MEDS: INSULIN GLARGINE 100 UNITS/ML, PEN SQ-INSULIN SCH (20:32)
[2017-05-25] MEDS: ATORVASTATIN 20 MG TABLET PO SCH (20:32)
[2017-05-26] MEDS: OXYcodone IR 5MG TABLET PO PRN ×3 (03:19→16:58)
[2017-05-26 03:32] VITALS: BP 147/83
[2017-05-26] MEDS: METOPROLOL TARTRATE 25 MG TABLET PO SCH ×4 (05:04→22:58)
[2017-05-26] MEDS: INSULIN REGULAR 100 UNITS/ML, 3ML VIAL SQ-INSULIN SCH ×4 (07:00→21:37)
[2017-05-26 07:14] VITALS: BP 135/85
[2017-05-26] MEDS: CYCLOSPORINE EACHEYE SCH ×2 (09:00→20:31)
[2017-05-26] MEDS: SODIUM CHLORIDE 0.9% 1,000 ML IV SCH ×2 (09:07→20:30)
[2017-05-26] MEDS: AMLODIPINE 5 MG TABLET PO SCH (09:08)
[2017-05-26] MEDS: LISINOPRIL 20 MG TABLET PO SCH (09:08)
[2017-05-26] MEDS: predniSONE 50MG TABLET PO SCH (09:08)
[2017-05-26] MEDS: PANTOPROZOLE 40MG TABLET PO SCH (09:08)
[2017-05-26] MEDS: TAMSULOSIN 0.4 MG CAP.ER.24H PO SCH (09:08)
[2017-05-26] MEDS: GABAPENTIN 300 MG CAPSULE PO SCH ×3 (09:08→21:38)
[2017-05-26 11:27] VITALS: BP 111/72
[2017-05-26 13:16] VITALS: BP 133/79
[2017-05-26 20:44] VITALS: BP 132/76
[2017-05-26] MEDS: INSULIN GLARGINE 100 UNITS/ML, PEN SQ-INSULIN SCH (21:37)
[2017-05-26] MEDS: ATORVASTATIN 20 MG TABLET PO SCH (21:38)
[2017-05-27 02:15] VITALS: BP 148/82
[2017-05-27] MEDS: SODIUM CHLORIDE 0.9% 1,000 ML IV SCH ×2 (04:58→16:50)
[2017-05-27] MEDS: METOPROLOL TARTRATE 25 MG TABLET PO SCH ×4 (04:58→23:00)
[2017-05-27] MEDS: INSULIN REGULAR 100 UNITS/ML, 3ML VIAL SQ-INSULIN SCH ×4 (07:00→20:30)
[2017-05-27 07:33] VITALS: BP 121/71
[2017-05-27] MEDS: PANTOPROZOLE 40MG TABLET PO SCH (08:08)
[2017-05-27] MEDS: TAMSULOSIN 0.4 MG CAP.ER.24H PO SCH (08:08)
[2017-05-27] MEDS: AMLODIPINE 5 MG TABLET PO SCH (08:08)
[2017-05-27] MEDS: LISINOPRIL 20 MG TABLET PO SCH (08:08)
[2017-05-27] MEDS: predniSONE 50MG TABLET PO SCH (08:09)
[2017-05-27] MEDS: GABAPENTIN 300 MG CAPSULE PO SCH ×3 (08:09→20:14)
[2017-05-27] MEDS: CYCLOSPORINE EACHEYE SCH ×2 (08:16→20:14)
[2017-05-27 14:14] VITALS: BP 102/66
[2017-05-27 16:38] VITALS: BP 140/78
[2017-05-27] MEDS: ATORVASTATIN 20 MG TABLET PO SCH (20:14)
[2017-05-27] MEDS: INSULIN GLARGINE 100 UNITS/ML, PEN SQ-INSULIN SCH (20:30)
[2017-05-27 20:39] VITALS: BP 123/71
[2017-05-28 01:28] VITALS: BP 129/78
[2017-05-28] MEDS: SODIUM CHLORIDE 0.9% 1,000 ML IV SCH (01:32)
[2017-05-28] MEDS: METOPROLOL TARTRATE 25 MG TABLET PO SCH ×4 (05:19→23:09)
[2017-05-28] MEDS: INSULIN REGULAR 100 UNITS/ML, 3ML VIAL SQ-INSULIN SCH ×4 (07:00→21:36)
[2017-05-28 07:45] VITALS: BP 140/78
[2017-05-28] MEDS: AMLODIPINE 5 MG TABLET PO SCH (08:40)
[2017-05-28] MEDS: GABAPENTIN 300 MG CAPSULE PO SCH ×3 (08:40→21:36)
[2017-05-28] MEDS: predniSONE 50MG TABLET PO SCH (08:41)
[2017-05-28] MEDS: LISINOPRIL 20 MG TABLET PO SCH (08:41)
[2017-05-28] MEDS: TAMSULOSIN 0.4 MG CAP.ER.24H PO SCH (08:41)
[2017-05-28] MEDS: PANTOPROZOLE 40MG TABLET PO SCH (08:44)
[2017-05-28] MEDS: CYCLOSPORINE EACHEYE SCH ×2 (08:46→21:00)
[2017-05-28] MEDS ORDERED: METO25TA35 PO (09:57)
[2017-05-28] MEDS ORDERED: PRED50TA PO (09:57)
[2017-05-28 11:32] VITALS: BP 93/68
[2017-05-28] MEDS: ACETAMINOPHEN 325 MG TABLET PO PRN ×2 (11:41→21:36)
[2017-05-28 14:20] VITALS: BP 130/70
[2017-05-28 16:49] VITALS: BP 137/69
[2017-05-28 18:56] VITALS: BP 127/75
[2017-05-28] MEDS: ATORVASTATIN 20 MG TABLET PO SCH (21:36)
[2017-05-28] MEDS: INSULIN GLARGINE 100 UNITS/ML, PEN SQ-INSULIN SCH (21:36)
[2017-05-29 02:30] VITALS: BP 121/74
[2017-05-29 03:33] LABS: CHLORIDE 109 mmol/L (98-107)
[2017-05-29 03:37] LABS: BASOPHILS # (AUTO) 0.03 x10^3/uL (0-0.1); BASOPHILS % (AUTO) 0 % (0-1); EOSINOPHILS # (AUTO) 0.12 x10^3/uL (0-0.4); EOSINOPHILS % (AUTO) 1 % (1-7); LYMPHOCYTES # (AUTO) 1.74 x10^3/uL (1-3.4); LYMPHOCYTES % (AUTO) 16 % (22-44); MD NO; MEAN CORPUSCULAR HEMOGLOBIN 26.1 pg (27.5-34.5); MEAN CORPUSCULAR HGB CONC 32.1 g/dL (33.2-36.2); MEAN CORPUSCULAR VOLUME 81.2 fL (81-97); MONOCYTES % (AUTO) 6 % (2-9); NEUTROPHILS # (AUTO) 8.34 x10^3/uL (1.8-6.8); NEUTROPHILS % (AUTO) 76 % (42-75); PLATELET COUNT 350 x10^3/uL (130-400); RED BLOOD COUNT 3.81 x10^6/uL (4.38-5.82); RED CELL DISTRIBUTION WIDTH 15.5 % (9.4-14.8)
[2017-05-29 03:38] LABS: ALBUMIN 2.1 g/dL (3.4-5.0); ANION GAP 9 mmol/L (5-15); CALCIUM 8.6 mg/dL (8.5-10.1); CREATININE 0.91 mg/dL (0.7-1.3)
[2017-05-29] MEDS: METOPROLOL TARTRATE 25 MG TABLET PO SCH ×3 (04:54→16:58)
[2017-05-29] MEDS: INSULIN REGULAR 100 UNITS/ML, 3ML VIAL SQ-INSULIN SCH ×3 (07:00→17:04)
[2017-05-29 07:35] VITALS: BP 129/76
[2017-05-29] MEDS: predniSONE 50MG TABLET PO SCH (08:07)
[2017-05-29] MEDS: TAMSULOSIN 0.4 MG CAP.ER.24H PO SCH (08:07)
[2017-05-29] MEDS: GABAPENTIN 300 MG CAPSULE PO SCH ×2 (08:07→16:58)
[2017-05-29] MEDS: LISINOPRIL 20 MG TABLET PO SCH (08:07)
[2017-05-29] MEDS: AMLODIPINE 5 MG TABLET PO SCH (08:08)
[2017-05-29] MEDS: PANTOPROZOLE 40MG TABLET PO SCH (08:08)
[2017-05-29] MEDS: CYCLOSPORINE EACHEYE SCH (08:08)
[2017-05-29] MEDS: ACETAMINOPHEN 325 MG TABLET PO PRN (12:42)
[2017-05-29 14:00] VITALS: BP 113/72
[2017-05-29] MEDS ORDERED: METH4TAB2 PO (14:50)
[2017-05-29] MEDS ORDERED: POTA20TA89 PO (14:58)
[2017-05-29] MEDS ORDERED: MAGN300C PO (14:58)
[2017-05-29] MEDS ORDERED: INSU100V8 SQ (15:05)
== END 2017-05-29 18:45 | DRG 515 ==
LOC: ED 20:34 → EDIP 22:51 → 5SO 23:42 → 3NW 05-15 11:30
PROVIDERS: ADMIT Internal Medicine; ATTEND Family Medicine
PROC: 01NB0ZZ Release Lumbar Nerve, Open Approach (ICD-10-PCS; principal; 2017-05-24 15:30)
DX: M48.02 Spinal stenosis, cervical region (principal); N17.0 Acute kidney failure with tubular necrosis; C79.51 Secondary malignant neoplasm of bone; D68.69 Other thrombophilia; E11.22 Type 2 diabetes mellitus with diabetic chronic kidney disease; I48.91 Unspecified atrial fibrillation; M35.3 Polymyalgia rheumatica; M48.062 Spinal stenosis, lumbar region with neurogenic claudication; C61 Malignant neoplasm of prostate; D72.829 Elevated white blood cell count, unspecified; E61.1 Iron deficiency; E78.5 Hyperlipidemia, unspecified; I13.10 Hypertensive heart and chronic kidney disease without heart failure, with stage 1 through stage 4 chronic kidney disease, or unspecified chronic kidney disease; I35.8 Other nonrheumatic aortic valve disorders; I16.0 Hypertensive urgency; M19.90 Unspecified osteoarthritis, unspecified site; M43.6 Torticollis; M75.51 Bursitis of right shoulder; N18.9 Chronic kidney disease, unspecified; N40.1 Benign prostatic hyperplasia with lower urinary tract symptoms; N39.498 Other specified urinary incontinence; Z79.4 Long term (current) use of insulin; Z79.899 Other long term (current) drug therapy; Z83.3 Family history of diabetes mellitus; Z85.46 Personal history of malignant neoplasm of prostate; Z87.891 Personal history of nicotine dependence; Z90.79 Acquired absence of other genital organ(s); Z88.0 Allergy status to penicillin
CPT/HCPCS: 36415; 70450; 70553; 71045; 71275; 72072; 72100; 72110; 72125; 72156; 72157; 72158; 80048; 80053; 81001; 82040; 82962; 83036; 83540; 83550; 83735; 84100; 84484; 85025; 85379; 85610; 85651; 86038; 86141; 86430; 86850; 86900; 87040; 87324; 93005; 93306; 93880; 96361; 96374; 96375; A9585; G0103; J0171; J0690; J1170; J1644; J1650; J1815; J1885; J2250; J2270; J2405; J2704; J2710; J3010; J3490; Q9967; 92523-GN; J1030; J2370; J3475; J7030; J7040; J7512

== ENCOUNTER → 2018-04-09 | Outpatient (CLI) | payer OTHER ==
[~2018-04-09] MED LIST: AMLO10TA4 PO; ATOR20TA37 PO; CYCL1DRO EACHEYE; FLUT16SP NS; GABA300C10 PO; GLIP5TAB3 PO; INSU100V8 SQ; LISI20TA PO; MAGN300C PO; METF500T PO; METH4TAB2 PO; METO25TA35 PO; OXYC5CAP2 PO; PANT40TA5 PO; POTA20TA89 PO; PRED50TA PO; TAMS-11 PO
== END | disposition home or self-care (01) ==
LOC: CFH 08:23
PROVIDERS: ATTEND Urology
DX: C61 Malignant neoplasm of prostate (principal)
CPT/HCPCS: 77080

== ENCOUNTER 2019-08-12 14:17 | Inpatient (IN) | payer MEDICARE ==
[~2019-08-12] VITALS: Ht 177.8 cm; Wt 116.2 kg
[~2019-08-12 14:17] MED LIST changes: -FLUT16SP NS; +FLUT16SP24 NS
--- NOTE | 2019-08-12 14:56 | NUR ---
Pt arrived from triage. Pt states that he has prostate cancer that has metastasized to his bones. He states his PCP sent him to the ED in order to get an MRI of his spine.
--- NOTE | 2019-08-12 15:01 | NUR ---
Dr. Ramachandran at bedside
--- NOTE | 2019-08-12 15:05 | NUR ---
REPORT TO SILVIO BARRETT
[2019-08-12 15:49] LABS: BASOPHILS # (AUTO) 0.07 x10^3/uL (0-0.1); BASOPHILS % (AUTO) 1 % (0-1); EOSINOPHILS # (AUTO) 0.23 x10^3/uL (0-0.4); EOSINOPHILS % (AUTO) 3 % (1-7); LYMPHOCYTES # (AUTO) 1.76 x10^3/uL (1-3.4); LYMPHOCYTES % (AUTO) 20 % (22-44); MD NO; MEAN CORPUSCULAR HEMOGLOBIN 26.7 pg (27.5-34.5); MEAN CORPUSCULAR HGB CONC 32.4 g/dL (33.2-36.2); MEAN CORPUSCULAR VOLUME 82.3 fL (81-97); MEAN PLATELET VOLUME 8.5 fL (7.4-10.4); MONOCYTES # (AUTO) 0.54 x10^3/uL (0.2-0.8); MONOCYTES % (AUTO) 6 % (2-9); NEUTROPHILS # (AUTO) 6.07 x10^3/uL (1.8-6.8); NEUTROPHILS % (AUTO) 70 % (42-75); PLATELET COUNT 298 x10^3/uL (130-400); RED BLOOD COUNT 4.68 x10^6/uL (4.38-5.82); RED CELL DISTRIBUTION WIDTH 15.9 % (9.4-14.8)
[2019-08-12 15:51] LABS: ALANINE AMINOTRANSFERASE 18 U/L (12-78); ALBUMIN 3.3 g/dL (3.4-5.0); ANION GAP 8 mmol/L (5-15); CALCIUM 9.1 mg/dL (8.5-10.1); CHLORIDE 114 mmol/L (98-107)
[2019-08-12 15:55] LABS: ALKALINE PHOSPHATASE 108 U/L (45-117); BILIRUBIN,TOTAL 0.3 mg/dL (0.2-1.0); TOTAL PROTEIN 7.4 g/dL (6.4-8.2); TROPONIN I 0.076 ng/mL (0.000-0.045)
[2019-08-12] MEDS ORDERED: MORPHINE SULFATE 4 MG/ML, 1ML ONE ×2 (16:23→17:20)
[2019-08-12] MEDS ORDERED: SODIUM CHLORIDE FLUSH 10ML SYR IVF ONE (16:30)
[2019-08-12] MEDS ORDERED: ASPIRIN 81 MG TABLET CHEW PO ONE (16:30)
--- NOTE | 2019-08-12 16:30 | NUR ---
PT READIED FOR MRI. EKG DONE. IV STARTED AND PAIN MEDICATION ADMINISTERED. MRI CALLED FOR READINESS.
[2019-08-12] MEDS: MORPHINE SULFATE 4 MG/ML, 1ML IVPush PRN ×2 (16:37→18:26)
[2019-08-12] MEDS ORDERED: ASPIRIN 81 MG TABLET EC ONE (16:39)
--- NOTE | 2019-08-12 16:50 | NUR ---
PT TO MRI. FAMILY NOTIFIED. DR. AYALA IN TO TALK WITH PATIENT PRIOR TO LEAVING FOR MRI. CALLED AND RN GIVEN PERMISSION TO SPEAK WITH ABOUT PATIENT CONDITION. INFORMED RN THAT SON IS COMING UP TO SEE FATHER.
--- NOTE | 2019-08-12 17:30 | NUR ---
PT REMAINS IN MRI.
[2019-08-12] MEDS ORDERED: GADOTERATE 10 MMOL/20 ML SYR ONE (18:30)
--- NOTE | 2019-08-12 18:30 | NUR ---
SON ARRIVES AND IS SITTING IN PATIENT ROOM. PT IS STILL IN MRI.
--- NOTE | 2019-08-12 19:45 | NUR ---
PT RETURNED FROM MRI. SON AT BEDSIDE. PT RESTING COMFORTABLY. NO C/O AT THIS TIME
--- NOTE | 2019-08-12 20:29 | NUR ---
PT RESTING IN BED. NO COMPLAINTS AT THIS TIME. PT HAS TALKED WITH AND SON. PT IS PREPARED TO SPEND THE NIGHT. SON IS CONCERNED THAT HIS FATHER IS DRINKING TO MUCH. PT DENIES HAVING AN ETOH PROBLEM. SON WANTS TO SPEAK TO THE ADMITTING DOCTOR ABOUT POSSIBLE HELP FOR HIS FATHER WHEN HE GOES HOME, OR AN ELECTRIC WHEELCHAIR.
--- NOTE | 2019-08-12 20:36 | NUR ---
DR. AYALA IN TO SPEAK TO PATIENT. MRI RESULTS ARE NOT POSTED YET, SO PATIENT WILL BE ADMITTED FOR ADDITIONAL REASONING. PT USING URINAL, RN TO COLLECT UA AFTER PATIENT FINISHES.
--- NOTE | 2019-08-12 21:02 | NUR ---
REPORT RECEIVED FROM ARNOLD ANGUIANO. ASSUMED CARE OF PT. HOSPITALIST AT BEDSIDE EVALUATING PT
[2019-08-12] MEDS ORDERED: BISACODYL 10 MG SUPP PR PRN (21:30)
[2019-08-12] MEDS ORDERED: POLYETHYLENE GLYCOL 17 GM PACKET PO PRN (21:30)
[2019-08-12] MEDS ORDERED: ONDANSETRON ODT 4 MG PO PRN (21:30)
--- NOTE | 2019-08-12 21:32 | NUR ---
PT DENIES ANY COMPLAINTS, DENIES ANY CP, SOB, N/V, DIZZINESS OR WEAKNESS. DOES C/O BACK PAIN HOWEVER REPORTS THIS IS CHRONIC. HE WAS PROVIDED WITH A MEAL. CALL LIGHT WITHIN REACH, ALL VITALS STABLE. AWAITING ROOM ON FLOOR AT THIS TIME
[2019-08-12 21:50] LABS: TROPONIN I 0.105 ng/mL (0.000-0.045)
[2019-08-12] MEDS ORDERED: HEPARIN 5,000 UNITS/ML, 1ML ONE (22:14)
[2019-08-12] MEDS ORDERED: GABAPENTIN 300 MG CAPSULE ONE (22:14)
[2019-08-12] MEDS ORDERED: METOPROLOL TARTRATE 25 MG TAB ONE (22:14)
[2019-08-12] MEDS: ATORVASTATIN 20 MG TABLET PO SCH (22:55)
[2019-08-12] MEDS: METOPROLOL TARTRATE 25 MG TAB PO SCH (22:56)
[2019-08-12] MEDS: GABAPENTIN 300 MG CAPSULE PO SCH (22:56)
[2019-08-12] MEDS: HEPARIN 5,000 UNITS/ML, 1ML SQ SCH (22:56)
--- NOTE | 2019-08-12 23:00 | NUR ---
PT MEDICATED PER EMAR FOR NIGHT MEDS. TOLERATED WELL. CONTINUES TO DENY ANY NEEDS AT THIS TIME. WILL CONTINUE TO MONITOR.
--- NOTE | 2019-08-12 23:40 | NUR ---
REPORT TO ARNOLD STONER
[2019-08-12] MEDS: RESTASIS EYE DROPS MC SCH (23:45)
[2019-08-12 23:53] VITALS: BP 164/105
[2019-08-13 01:27] LABS: MICROSCOPIC AUTO
[2019-08-13 01:34] LABS: CULTURE INDICATED? NO
[2019-08-13 02:18] VITALS: BP 152/89
[2019-08-13] MEDS: INSULIN GLARGINE 100 UNITS/ML, PEN SQ-INSULIN SCH ×3 (02:26→21:28)
[2019-08-13 04:18] LABS: BASOPHILS # (AUTO) 0.07 x10^3/uL (0-0.1); BASOPHILS % (AUTO) 1 % (0-1); EOSINOPHILS # (AUTO) 0.29 x10^3/uL (0-0.4); EOSINOPHILS % (AUTO) 4 % (1-7); LYMPHOCYTES # (AUTO) 2.02 x10^3/uL (1-3.4); LYMPHOCYTES % (AUTO) 25 % (22-44); MD NO; MEAN CORPUSCULAR HEMOGLOBIN 26.8 pg (27.5-34.5); MEAN CORPUSCULAR HGB CONC 32.3 g/dL (33.2-36.2); MEAN CORPUSCULAR VOLUME 82.9 fL (81-97); MEAN PLATELET VOLUME 8.4 fL (7.4-10.4); MONOCYTES # (AUTO) 0.58 x10^3/uL (0.2-0.8); MONOCYTES % (AUTO) 7 % (2-9); NEUTROPHILS # (AUTO) 4.97 x10^3/uL (1.8-6.8); NEUTROPHILS % (AUTO) 63 % (42-75); PLATELET COUNT 283 x10^3/uL (130-400); RED BLOOD COUNT 4.44 x10^6/uL (4.38-5.82); RED CELL DISTRIBUTION WIDTH 15.8 % (9.4-14.8)
[2019-08-13 04:28] LABS: ANION GAP 8 mmol/L (5-15); CALCIUM 8.5 mg/dL (8.5-10.1); CHLORIDE 115 mmol/L (98-107); CREATININE 1.43 mg/dL (0.7-1.3)
[2019-08-13 04:31] LABS: TROPONIN I 0.101 ng/mL (0.000-0.045)
[2019-08-13] MEDS: HEPARIN 5,000 UNITS/ML, 1ML SQ SCH ×3 (05:50→21:27)
[2019-08-13 07:39] VITALS: BP 153/89
[2019-08-13] MEDS: RESTASIS EYE DROPS MC SCH ×3 (07:45→23:45)
[2019-08-13] MEDS: TAMSULOSIN 0.4 MG CAP.ER.24H PO SCH (08:44)
[2019-08-13] MEDS: GABAPENTIN 300 MG CAPSULE PO SCH ×2 (08:45→21:27)
[2019-08-13] MEDS: METOPROLOL TARTRATE 25 MG TAB PO SCH ×2 (08:45→22:00)
[2019-08-13] MEDS: PANTOPRAZOLE 40MG TABLET PO SCH (08:45)
[2019-08-13] MEDS: LISINOPRIL 20 MG TABLET PO SCH (08:45)
[2019-08-13] MEDS: SENNA/DOCUSATE TABLET PO SCH (08:45)
[2019-08-13] MEDS ORDERED: POTASSIUM CHLORIDE 10% 40 MEQ/30 ML UDC PO ONE (09:00)
[2019-08-13] MEDS: FLUTICASONE NASAL SPRAY 16GM NAS SCH (09:27)
[2019-08-13] MEDS: ASPIRIN 81 MG TABLET CHEW PO SCH (09:28)
[2019-08-13] MEDS ORDERED: GADOTERATE 10 MMOL/20 ML SYR ONE (10:43)
[2019-08-13] MEDS: OXYcodone/APAP 5/325MG TABLET PO PRN ×2 (11:21→18:05)
[2019-08-13 15:03] VITALS: BP 142/84
[2019-08-13] MEDS ORDERED: metFORMIN 500 MG TABLET PO SCH (16:30)
[2019-08-13 20:10] VITALS: BP 121/79
[2019-08-13] MEDS ORDERED: INSU100V13 SQ-INSULIN (20:23)
[2019-08-13] MEDS: ATORVASTATIN 20 MG TABLET PO SCH (21:27)
[2019-08-14] VITALS (7 sets, daily range): BP systolic 113–164; BP diastolic 76–106
[2019-08-14] MEDS: OXYcodone/APAP 5/325MG TABLET PO PRN ×3 (04:41→20:08)
[2019-08-14] MEDS: METOPROLOL TARTRATE 25 MG TAB PO SCH (04:41)
[2019-08-14] MEDS: HEPARIN 5,000 UNITS/ML, 1ML SQ SCH ×3 (04:41→21:44)
[2019-08-14 05:17] LABS: BASOPHILS # (AUTO) 0.12 x10^3/uL (0-0.1); BASOPHILS % (AUTO) 2 % (0-1); EOSINOPHILS # (AUTO) 0.33 x10^3/uL (0-0.4); EOSINOPHILS % (AUTO) 4 % (1-7); LYMPHOCYTES # (AUTO) 2.06 x10^3/uL (1-3.4); LYMPHOCYTES % (AUTO) 27 % (22-44); MD NO; MEAN CORPUSCULAR HEMOGLOBIN 26.8 pg (27.5-34.5); MEAN CORPUSCULAR HGB CONC 32.3 g/dL (33.2-36.2); MEAN CORPUSCULAR VOLUME 83.2 fL (81-97); MEAN PLATELET VOLUME 8.5 fL (7.4-10.4); MONOCYTES # (AUTO) 0.49 x10^3/uL (0.2-0.8); MONOCYTES % (AUTO) 7 % (2-9); NEUTROPHILS # (AUTO) 4.58 x10^3/uL (1.8-6.8); NEUTROPHILS % (AUTO) 60 % (42-75); PLATELET COUNT 257 x10^3/uL (130-400); RED BLOOD COUNT 4.29 x10^6/uL (4.38-5.82); RED CELL DISTRIBUTION WIDTH 15.6 % (9.4-14.8)
[2019-08-14 05:26] LABS: ANION GAP 5 mmol/L (5-15); CALCIUM 8.4 mg/dL (8.5-10.1); CHLORIDE 115 mmol/L (98-107); CREATININE 1.32 mg/dL (0.7-1.3)
[2019-08-14] MEDS: TAMSULOSIN 0.4 MG CAP.ER.24H PO SCH (10:04)
[2019-08-14] MEDS: PANTOPRAZOLE 40MG TABLET PO SCH (10:04)
[2019-08-14] MEDS: LISINOPRIL 20 MG TABLET PO SCH (10:05)
[2019-08-14] MEDS: GABAPENTIN 300 MG CAPSULE PO SCH ×2 (10:05→21:41)
[2019-08-14] MEDS: ASPIRIN 81 MG TABLET CHEW PO SCH (10:05)
[2019-08-14] MEDS: FLUTICASONE NASAL SPRAY 16GM NAS SCH (10:05)
[2019-08-14] MEDS: SENNA/DOCUSATE TABLET PO SCH (10:05)
[2019-08-14] MEDS: INSULIN LISPRO 100 UNITS/ML, PEN SQ-INSULIN SCH ×2 (15:51→22:03)
[2019-08-14] MEDS: ATORVASTATIN 20 MG TABLET PO SCH (21:41)
[2019-08-14] MEDS: INSULIN GLARGINE 100 UNITS/ML, PEN SQ-INSULIN SCH (22:00)
[2019-08-15 01:20] VITALS: BP 124/81
[2019-08-15] MEDS: OXYcodone/APAP 5/325MG TABLET PO PRN ×5 (04:29→20:03)
[2019-08-15] MEDS: HEPARIN 5,000 UNITS/ML, 1ML SQ SCH ×3 (05:53→21:24)
[2019-08-15 06:57] VITALS: BP 145/83
[2019-08-15] MEDS: INSULIN LISPRO 100 UNITS/ML, PEN SQ-INSULIN SCH ×4 (07:00→21:25)
[2019-08-15] MEDS: FLUTICASONE NASAL SPRAY 16GM NAS SCH (09:58)
[2019-08-15] MEDS: TAMSULOSIN 0.4 MG CAP.ER.24H PO SCH (10:00)
[2019-08-15] MEDS: SENNA/DOCUSATE TABLET PO SCH (10:00)
[2019-08-15] MEDS: ASPIRIN 81 MG TABLET CHEW PO SCH (10:00)
[2019-08-15] MEDS: PANTOPRAZOLE 40MG TABLET PO SCH (10:00)
[2019-08-15] MEDS: GABAPENTIN 300 MG CAPSULE PO SCH ×3 (10:01→21:22)
[2019-08-15] MEDS: LISINOPRIL 20 MG TABLET PO SCH (10:01)
[2019-08-15 12:03] VITALS: BP 144/83
[2019-08-15] MEDS: CYCLOBENZAPRINE 10 MG TABLET PO PRN (14:14)
[2019-08-15 20:00] VITALS: BP 155/85
[2019-08-15] MEDS: ATORVASTATIN 20 MG TABLET PO SCH (21:22)
[2019-08-15] MEDS: INSULIN GLARGINE 100 UNITS/ML, PEN SQ-INSULIN SCH (21:34)
[2019-08-15 21:43] VITALS: BP 150/86
[2019-08-16 01:28] VITALS: BP 146/86
[2019-08-16] MEDS: OXYcodone/APAP 5/325MG TABLET PO PRN ×5 (01:28→20:52)
[2019-08-16] MEDS: HEPARIN 5,000 UNITS/ML, 1ML SQ SCH ×3 (05:38→20:52)
[2019-08-16] MEDS: INSULIN LISPRO 100 UNITS/ML, PEN SQ-INSULIN SCH ×4 (07:00→21:00)
[2019-08-16 07:38] VITALS: BP 152/82
[2019-08-16] MEDS: SENNA/DOCUSATE TABLET PO SCH (10:36)
[2019-08-16] MEDS: GABAPENTIN 300 MG CAPSULE PO SCH ×3 (10:36→20:51)
[2019-08-16] MEDS: PANTOPRAZOLE 40MG TABLET PO SCH (10:36)
[2019-08-16] MEDS: FLUTICASONE NASAL SPRAY 16GM NAS SCH (10:36)
[2019-08-16] MEDS: TAMSULOSIN 0.4 MG CAP.ER.24H PO SCH (10:37)
[2019-08-16] MEDS: LISINOPRIL 40 MG TABLET PO SCH (10:37)
[2019-08-16 14:17] VITALS: BP 148/84
[2019-08-16] MEDS: GABAPENTIN 100 MG CAPSULE PO SCH ×2 (17:40→20:52)
[2019-08-16 18:46] VITALS: BP 147/86
[2019-08-16] MEDS: ATORVASTATIN 20 MG TABLET PO SCH (20:51)
[2019-08-16] MEDS: INSULIN GLARGINE 100 UNITS/ML, PEN SQ-INSULIN SCH (21:00)
[2019-08-17 02:01] VITALS: BP 134/75
[2019-08-17 03:54] LABS: BASOPHILS # (AUTO) 0.11 x10^3/uL (0-0.1); BASOPHILS % (AUTO) 1 % (0-1); EOSINOPHILS # (AUTO) 0.21 x10^3/uL (0-0.4); EOSINOPHILS % (AUTO) 3 % (1-7); LYMPHOCYTES # (AUTO) 2.08 x10^3/uL (1-3.4); LYMPHOCYTES % (AUTO) 25 % (22-44); MD NO; MEAN CORPUSCULAR HEMOGLOBIN 26.8 pg (27.5-34.5); MEAN CORPUSCULAR HGB CONC 32.1 g/dL (33.2-36.2); MEAN CORPUSCULAR VOLUME 83.5 fL (81-97); MEAN PLATELET VOLUME 8.7 fL (7.4-10.4); MONOCYTES # (AUTO) 0.73 x10^3/uL (0.2-0.8); MONOCYTES % (AUTO) 9 % (2-9); NEUTROPHILS # (AUTO) 5.26 x10^3/uL (1.8-6.8); NEUTROPHILS % (AUTO) 63 % (42-75); PLATELET COUNT 228 x10^3/uL (130-400); RED BLOOD COUNT 4.39 x10^6/uL (4.38-5.82); RED CELL DISTRIBUTION WIDTH 16.6 % (9.4-14.8)
[2019-08-17 04:03] LABS: ALBUMIN 2.8 g/dL (3.4-5.0); ANION GAP 6 mmol/L (5-15); CALCIUM 8.5 mg/dL (8.5-10.1); CHLORIDE 115 mmol/L (98-107)
[2019-08-17 04:08] LABS: ALANINE AMINOTRANSFERASE 33 U/L (12-78); ALKALINE PHOSPHATASE 92 U/L (45-117); BILIRUBIN,TOTAL 0.5 mg/dL (0.2-1.0); CREATININE 1.33 mg/dL (0.7-1.3); TOTAL PROTEIN 6.8 g/dL (6.4-8.2)
[2019-08-17] MEDS: OXYcodone/APAP 5/325MG TABLET PO PRN ×3 (05:51→20:41)
[2019-08-17] MEDS: HEPARIN 5,000 UNITS/ML, 1ML SQ SCH ×2 (05:51→18:04)
[2019-08-17] MEDS: INSULIN LISPRO 100 UNITS/ML, PEN SQ-INSULIN SCH ×4 (07:00→20:50)
[2019-08-17 07:14] VITALS: BP 123/82
[2019-08-17] MEDS: LISINOPRIL 40 MG TABLET PO SCH (08:30)
[2019-08-17] MEDS: PANTOPRAZOLE 40MG TABLET PO SCH (08:30)
[2019-08-17] MEDS: GABAPENTIN 100 MG CAPSULE PO SCH ×3 (08:31→20:42)
[2019-08-17] MEDS: GABAPENTIN 300 MG CAPSULE PO SCH ×3 (08:31→20:42)
[2019-08-17] MEDS: TAMSULOSIN 0.4 MG CAP.ER.24H PO SCH (08:31)
[2019-08-17] MEDS: SENNA/DOCUSATE TABLET PO SCH (08:32)
[2019-08-17] MEDS: FLUTICASONE NASAL SPRAY 16GM NAS SCH (11:47)
[2019-08-17 12:37] VITALS: BP 124/77
[2019-08-17 19:19] VITALS: BP 162/93
[2019-08-17] MEDS: ATORVASTATIN 20 MG TABLET PO SCH (20:42)
[2019-08-17] MEDS: INSULIN GLARGINE 100 UNITS/ML, PEN SQ-INSULIN SCH (20:49)
[2019-08-18] MEDS: HEPARIN 5,000 UNITS/ML, 1ML SQ SCH ×3 (00:54→16:38)
[2019-08-18 00:59] VITALS: BP 145/88
[2019-08-18 05:56] LABS: BASOPHILS # (AUTO) 0.12 x10^3/uL (0-0.1); BASOPHILS % (AUTO) 1 % (0-1); EOSINOPHILS # (AUTO) 0.27 x10^3/uL (0-0.4); EOSINOPHILS % (AUTO) 3 % (1-7); LYMPHOCYTES # (AUTO) 1.93 x10^3/uL (1-3.4); LYMPHOCYTES % (AUTO) 20 % (22-44); MD NO; MEAN CORPUSCULAR HEMOGLOBIN 26.9 pg (27.5-34.5); MEAN CORPUSCULAR HGB CONC 32.1 g/dL (33.2-36.2); MEAN CORPUSCULAR VOLUME 83.9 fL (81-97); MEAN PLATELET VOLUME 8.5 fL (7.4-10.4); MONOCYTES # (AUTO) 0.85 x10^3/uL (0.2-0.8); MONOCYTES % (AUTO) 9 % (2-9); NEUTROPHILS # (AUTO) 6.41 x10^3/uL (1.8-6.8); NEUTROPHILS % (AUTO) 67 % (42-75); PLATELET COUNT 255 x10^3/uL (130-400); RED BLOOD COUNT 4.23 x10^6/uL (4.38-5.82); RED CELL DISTRIBUTION WIDTH 16.3 % (9.4-14.8)
[2019-08-18 06:06] LABS: ANION GAP 7 mmol/L (5-15); CALCIUM 8.7 mg/dL (8.5-10.1); CHLORIDE 115 mmol/L (98-107); CREATININE 1.55 mg/dL (0.7-1.3)
[2019-08-18] MEDS: INSULIN LISPRO 100 UNITS/ML, PEN SQ-INSULIN SCH ×4 (07:00→20:06)
[2019-08-18 07:42] VITALS: BP 133/80
[2019-08-18] MEDS: LISINOPRIL 40 MG TABLET PO SCH (08:33)
[2019-08-18] MEDS: GABAPENTIN 100 MG CAPSULE PO SCH ×3 (08:33→20:27)
[2019-08-18] MEDS: SENNA/DOCUSATE TABLET PO SCH (08:33)
[2019-08-18] MEDS: GABAPENTIN 300 MG CAPSULE PO SCH ×3 (08:33→20:27)
[2019-08-18] MEDS: PANTOPRAZOLE 40MG TABLET PO SCH (08:33)
[2019-08-18] MEDS: OXYcodone/APAP 5/325MG TABLET PO PRN ×3 (08:34→20:28)
[2019-08-18] MEDS: TAMSULOSIN 0.4 MG CAP.ER.24H PO SCH (08:34)
[2019-08-18] MEDS: FLUTICASONE NASAL SPRAY 16GM NAS SCH (08:41)
[2019-08-18] MEDS ORDERED: REGADENOSON 0.4 MG/5 ML SYRINGE ONE (09:01)
[2019-08-18 11:48] VITALS: BP 149/91
[2019-08-18 15:00] VITALS: BP 149/91
[2019-08-18 19:28] VITALS: BP 147/93
[2019-08-18] MEDS: ATORVASTATIN 20 MG TABLET PO SCH (20:27)
[2019-08-18] MEDS: INSULIN GLARGINE 100 UNITS/ML, PEN SQ-INSULIN SCH (20:30)
[2019-08-19 00:28] VITALS: BP 139/88
[2019-08-19] MEDS: HEPARIN 5,000 UNITS/ML, 1ML SQ SCH (00:32)
[2019-08-19] MEDS: OXYcodone/APAP 5/325MG TABLET PO PRN ×3 (03:58→12:53)
[2019-08-19 07:43] VITALS: BP 145/85
[2019-08-19] MEDS: PANTOPRAZOLE 40MG TABLET PO SCH (08:44)
[2019-08-19] MEDS: GABAPENTIN 100 MG CAPSULE PO SCH ×3 (08:44→20:54)
[2019-08-19] MEDS: SENNA/DOCUSATE TABLET PO SCH (08:45)
[2019-08-19] MEDS: TAMSULOSIN 0.4 MG CAP.ER.24H PO SCH ×2 (08:45→08:50)
[2019-08-19] MEDS: LISINOPRIL 40 MG TABLET PO SCH (08:45)
[2019-08-19] MEDS: GABAPENTIN 300 MG CAPSULE PO SCH ×3 (08:48→20:54)
[2019-08-19] MEDS: FLUTICASONE NASAL SPRAY 16GM NAS SCH (08:50)
[2019-08-19] MEDS: INSULIN LISPRO 100 UNITS/ML, PEN SQ-INSULIN SCH ×4 (08:53→20:54)
[2019-08-19 11:22] LABS: INTERNATIONAL NORMALIZED RATIO 0.95 (0.93-1.1); PROTHROMBIN TIME 10.1 Seconds (9.6-11.5)
[2019-08-19] MEDS: CYCLOBENZAPRINE 10 MG TABLET PO PRN (12:52)
[2019-08-19 14:49] VITALS: BP 162/92
[2019-08-19] MEDS: SODIUM CHLORIDE 0.9% 1,000 ML IV SCH (16:44)
[2019-08-19] MEDS ORDERED: OXYcodone IR 5MG TABLET PO PRN (18:30)
[2019-08-19 18:54] VITALS: BP 142/83
[2019-08-19] MEDS: ATORVASTATIN 20 MG TABLET PO SCH (20:54)
[2019-08-20 00:30] VITALS: BP 174/84
[2019-08-20] MEDS ORDERED: hydrALAzine 20 MG/ML, 1ML IV ONE (01:00)
[2019-08-20 02:54] VITALS: BP 163/83
[2019-08-20] MEDS: SODIUM CHLORIDE 0.9% 1,000 ML IV SCH (03:33)
[2019-08-20 05:53] LABS: BASOPHILS # (AUTO) 0.11 x10^3/uL (0-0.1); BASOPHILS % (AUTO) 1 % (0-1); EOSINOPHILS # (AUTO) 0.07 x10^3/uL (0-0.4); EOSINOPHILS % (AUTO) 1 % (1-7); LYMPHOCYTES # (AUTO) 1.61 x10^3/uL (1-3.4); LYMPHOCYTES % (AUTO) 14 % (22-44); MD NO; MEAN CORPUSCULAR HEMOGLOBIN 26.8 pg (27.5-34.5); MEAN CORPUSCULAR HGB CONC 32.2 g/dL (33.2-36.2); MEAN CORPUSCULAR VOLUME 83.4 fL (81-97); MEAN PLATELET VOLUME 8.7 fL (7.4-10.4); MONOCYTES # (AUTO) 1.09 x10^3/uL (0.2-0.8); MONOCYTES % (AUTO) 10 % (2-9); NEUTROPHILS # (AUTO) 8.29 x10^3/uL (1.8-6.8); NEUTROPHILS % (AUTO) 74 % (42-75); PLATELET COUNT 257 x10^3/uL (130-400); RED BLOOD COUNT 4.29 x10^6/uL (4.38-5.82)
[2019-08-20 05:58] LABS: ANION GAP 10 mmol/L (5-15); CALCIUM 8.8 mg/dL (8.5-10.1); CHLORIDE 111 mmol/L (98-107); CREATININE 2.09 mg/dL (0.7-1.3)
[2019-08-20] MEDS ORDERED: BACITRACIN 50,000 UNIT ONE (06:40)
[2019-08-20] MEDS ORDERED: BUPIVACAINE/PF-EPI 0.5% 1:200K ONE (06:40)
[2019-08-20] MEDS ORDERED: FENTANYL PF 250 MCG/5ML ONE (06:44)
[2019-08-20] MEDS ORDERED: PROPOFOL 50 ML ONE ×3 (06:45→09:10)
[2019-08-20] MEDS: INSULIN LISPRO 100 UNITS/ML, PEN SQ-INSULIN SCH ×4 (07:00→21:25)
[2019-08-20] MEDS ORDERED: PHENYLEPHRINE 10 MG/ML ONE (07:28)
[2019-08-20] MEDS ORDERED: ONDANSETRON 2MG/ML, 2ML IV PRN (07:30)
[2019-08-20] MEDS ORDERED: hydrALAzine 20 MG/ML, 1ML IV PRN ×2 (07:30→17:00)
[2019-08-20] MEDS ORDERED: LABETALOL 5MG/ML, 20ML IV PRN (07:30)
[2019-08-20] MEDS ORDERED: FENTANYL PF 100 MCG/2ML IV PRN (07:30)
[2019-08-20] MEDS ORDERED: MORPHINE SULFATE 4 MG/ML, 1ML IVPush PRN (07:30)
[2019-08-20] MEDS ORDERED: METOPROLOL 1 MG/ML, 5ML IV PRN (07:30)
[2019-08-20] MEDS ORDERED: CLINDAMYCIN 150 MG/ML, 6ML ONE (08:30)
[2019-08-20] MEDS: LISINOPRIL 40 MG TABLET PO SCH (09:00)
[2019-08-20] MEDS: GABAPENTIN 100 MG CAPSULE PO SCH ×3 (09:00→21:23)
[2019-08-20] MEDS: TAMSULOSIN 0.4 MG CAP.ER.24H PO SCH (09:00)
[2019-08-20] MEDS: SENNA/DOCUSATE TABLET PO SCH (09:00)
[2019-08-20] MEDS: GABAPENTIN 300 MG CAPSULE PO SCH ×3 (09:00→21:00)
[2019-08-20] MEDS: FLUTICASONE NASAL SPRAY 16GM NAS SCH (09:00)
[2019-08-20] MEDS: PANTOPRAZOLE 40MG TABLET PO SCH (09:00)
[2019-08-20] MEDS ORDERED: PROPOFOL 10 MG/ML, 20ML ONE (09:07)
[2019-08-20] MEDS ORDERED: LIDOCAINE-MPF 2% ,5ML ONE (09:07)
[2019-08-20] MEDS ORDERED: ROCURONIUM 10MG/ML,5ML ONE (09:08)
[2019-08-20] MEDS ORDERED: SUCCINYLCHOLINE 20 MG/ML, 10ML ONE (09:08)
[2019-08-20] MEDS ORDERED: ONDANSETRON 2MG/ML, 2ML ONE (09:10)
[2019-08-20] MEDS ORDERED: DEXAMETHASONE 4 MG/ML, 1ML ONE ×2 (09:10)
[2019-08-20] MEDS ORDERED: SENNA/DOCUSATE TABLET PO PRN (11:00)
[2019-08-20] MEDS ORDERED: BISACODYL 10 MG SUPP PR PRN (11:00)
[2019-08-20] MEDS ORDERED: PHARMACY MAY ADJ FOR RENAL FX MC PRN (11:00)
[2019-08-20] MEDS: CLINDAMYCIN 300 MG CAPSULE PO SCH ×3 (11:00→21:23)
[2019-08-20] MEDS ORDERED: ONDANSETRON 2MG/ML, 2ML IVPush PRN (11:00)
[2019-08-20] MEDS ORDERED: ACETAMINOPHEN 325 MG TABLET PO PRN (11:00)
[2019-08-20] MEDS ORDERED: MAGNESIUM HYDROXIDE 8%, 30ML UDC PO PRN (11:00)
[2019-08-20] MEDS ORDERED: MORPHINE SULFATE 4 MG/ML, 1ML ONE (11:43)
[2019-08-20] MEDS ORDERED: METHOCARBAMOL 1,000 MG in DEXTROSE 5% 100 ML IV ONE (12:00)
[2019-08-20 13:23] VITALS: BP 160/88
[2019-08-20] MEDS ORDERED: LACTATED RINGERS 1,000 ML IVBOLUS ONE (16:00)
[2019-08-20 18:57] VITALS: BP 125/75
[2019-08-20] MEDS ORDERED: CYCLOBENZAPRINE 10 MG TABLET PO PRN (19:00)
[2019-08-20] MEDS: ATORVASTATIN 20 MG TABLET PO SCH (21:23)
[2019-08-21 00:10] VITALS: BP 150/79
[2019-08-21] MEDS: CLINDAMYCIN 300 MG CAPSULE PO SCH ×4 (04:20→23:19)
[2019-08-21 05:49] LABS: BASOPHILS # (AUTO) 0.01 x10^3/uL (0-0.1); BASOPHILS % (AUTO) 0 % (0-1); EOSINOPHILS # (AUTO) 0.04 x10^3/uL (0-0.4); MD NO
[2019-08-21 05:58] LABS: ALBUMIN 2.2 g/dL (3.4-5.0); ANION GAP 10 mmol/L (5-15); CALCIUM 8.2 mg/dL (8.5-10.1); CHLORIDE 110 mmol/L (98-107)
[2019-08-21 05:59] LABS: CREATININE 1.92 mg/dL (0.7-1.3)
[2019-08-21 06:10] LABS: EOSINOPHILS % (AUTO) 0 % (1-7); LYMPHOCYTES # (AUTO) 1.72 x10^3/uL (1-3.4); LYMPHOCYTES % (AUTO) 15 % (22-44); MEAN CORPUSCULAR HEMOGLOBIN 26.7 pg (27.5-34.5); MEAN CORPUSCULAR HGB CONC 31.7 g/dL (33.2-36.2); MEAN CORPUSCULAR VOLUME 84.3 fL (81-97); MONOCYTES % (AUTO) 11 % (2-9); NEUTROPHILS % (AUTO) 74 % (42-75); PLATELET COUNT 269 x10^3/uL (130-400); RED BLOOD COUNT 4.13 x10^6/uL (4.38-5.82); RED CELL DISTRIBUTION WIDTH 15.7 % (9.4-14.8)
[2019-08-21] MEDS: INSULIN LISPRO 100 UNITS/ML, PEN SQ-INSULIN SCH ×4 (07:00→21:42)
[2019-08-21 07:42] VITALS: BP 122/84
[2019-08-21] MEDS: SENNA/DOCUSATE TABLET PO SCH (09:00)
[2019-08-21] MEDS: FLUTICASONE NASAL SPRAY 16GM NAS SCH (09:00)
[2019-08-21] MEDS: TAMSULOSIN 0.4 MG CAP.ER.24H PO SCH (09:00)
[2019-08-21] MEDS: GABAPENTIN 300 MG CAPSULE PO SCH ×2 (09:00→21:00)
[2019-08-21] MEDS: LISINOPRIL 40 MG TABLET PO SCH (09:00)
[2019-08-21] MEDS: PANTOPRAZOLE 40MG TABLET PO SCH (09:00)
[2019-08-21] MEDS ORDERED: GABAPENTIN 300 MG CAPSULE PO SCH (09:00)
[2019-08-21 12:57] VITALS: BP 109/63
[2019-08-21] MEDS ORDERED: ACETAMINOPHEN 100 ML IVPB ONE (14:00)
[2019-08-21] MEDS ORDERED: LACTATED RINGERS 1,000 ML IVBOLUS ONE (14:00)
[2019-08-21] MEDS ORDERED: ACETAMINOPHEN 650 MG SUPP PR PRN (14:00)
[2019-08-21] MEDS ORDERED: GADOTERATE 7.5 MMOL/15 ML SYR ONE (15:11)
[2019-08-21 19:48] VITALS: BP 108/60
[2019-08-21] MEDS: ATORVASTATIN 20 MG TABLET PO SCH (21:42)
[2019-08-22 01:41] VITALS: BP 135/78
[2019-08-22] MEDS: CLINDAMYCIN 300 MG CAPSULE PO SCH ×4 (04:46→23:13)
[2019-08-22 05:28] LABS: ALBUMIN 1.8 g/dL (3.4-5.0); ANION GAP 6 mmol/L (5-15); CALCIUM 7.6 mg/dL (8.5-10.1); CHLORIDE 113 mmol/L (98-107)
[2019-08-22 05:29] LABS: CREATININE 2.58 mg/dL (0.7-1.3)
[2019-08-22 05:31] LABS: BASOPHILS # (AUTO) 0.03 x10^3/uL (0-0.1); BASOPHILS % (AUTO) 0 % (0-1); EOSINOPHILS # (AUTO) 0.34 x10^3/uL (0-0.4); EOSINOPHILS % (AUTO) 4 % (1-7); LYMPHOCYTES # (AUTO) 1.17 x10^3/uL (1-3.4); LYMPHOCYTES % (AUTO) 13 % (22-44); MD NO; MEAN CORPUSCULAR VOLUME 84.5 fL (81-97); MEAN PLATELET VOLUME 8.6 fL (7.4-10.4); MONOCYTES # (AUTO) 0.76 x10^3/uL (0.2-0.8); MONOCYTES % (AUTO) 8 % (2-9); NEUTROPHILS % (AUTO) 76 % (42-75); PLATELET COUNT 239 x10^3/uL (130-400); RED BLOOD COUNT 3.47 x10^6/uL (4.38-5.82); RED CELL DISTRIBUTION WIDTH 15.6 % (9.4-14.8)
[2019-08-22 06:20] VITALS: BP 110/69
[2019-08-22] MEDS: INSULIN LISPRO 100 UNITS/ML, PEN SQ-INSULIN SCH ×4 (07:00→20:08)
[2019-08-22] MEDS: SENNA/DOCUSATE TABLET PO SCH (09:00)
[2019-08-22] MEDS: PANTOPRAZOLE 40MG TABLET PO SCH (09:00)
[2019-08-22] MEDS: GABAPENTIN 300 MG CAPSULE PO SCH ×2 (09:00→20:13)
[2019-08-22] MEDS: TAMSULOSIN 0.4 MG CAP.ER.24H PO SCH (09:00)
[2019-08-22] MEDS: FLUTICASONE NASAL SPRAY 16GM NAS SCH (09:00)
[2019-08-22] MEDS ORDERED: PHARMACY INSTRUCTION MC PRN (10:00)
[2019-08-22] MEDS ORDERED: PHARMACY MAY ADJ FOR RENAL FX MC PRN (10:00)
[2019-08-22] MEDS ORDERED: INSTRUCTION SEE COMMENTS XX PRN (10:00)
[2019-08-22] MEDS ORDERED: SODIUM CHLORIDE 0.9% 1,000 ML IV SCH (10:00)
[2019-08-22] MEDS ORDERED: ACYCLOVIR 800 MG TABLET PO SCH (10:30)
[2019-08-22 11:02] VITALS: BP 165/70
[2019-08-22 11:26] LABS: MICROSCOPIC AUTO
[2019-08-22 11:28] LABS: CULTURE INDICATED? NO
[2019-08-22 11:45] LABS: O2 FLOW 1.5 L/min
[2019-08-22 11:59] LABS: TROPONIN I < 0.015 ng/mL (0.000-0.045)
[2019-08-22] MEDS ORDERED: NALOXONE 0.4 MG/ML, 1ML IVPush ONE (12:00)
[2019-08-22] MEDS ORDERED: SODIUM CHLORIDE 0.9% 1,000ML IVBOLUS ONE (12:00)
[2019-08-22] MEDS: ACYCLOVIR 900 MG in SODIUM CHLORIDE 0.9% 250 ML IV SCH (13:34)
[2019-08-22] MEDS ORDERED: MORPHINE SULFATE 4 MG/ML, 1ML IVPush PRN (14:00)
[2019-08-22 14:24] VITALS: BP 128/83
[2019-08-22] MEDS: ACETAMINOPHEN 325 MG TABLET PO PRN (14:43)
[2019-08-22] MEDS ORDERED: VANCOMYCIN 2,500 MG in SODIUM CHLORIDE 0.9% 500 ML IV ONE (15:30)
[2019-08-22] MEDS ORDERED: VANCOMYCIN PER PHARMACY MC PRN (15:30)
[2019-08-22] MEDS ORDERED: PHARMACOKINETIC CONSULTATION MC ONE (15:30)
[2019-08-22] MEDS: MEROPENEM 1 GM in SODIUM CHLORIDE 0.9% 100 ML IV SCH ×2 (15:41→23:06)
[2019-08-22 15:50] LABS: BILIRUBIN, DIRECT 0.2 mg/dL (0.1-0.2)
[2019-08-22 15:54] LABS: BILIRUBIN,INDIRECT 0.2 mg/dL (0.0-2.0); BILIRUBIN,TOTAL 0.4 mg/dL (0.2-1.0); TOTAL PROTEIN 6.6 g/dL (6.4-8.2)
[2019-08-22 16:00] LABS: ALBUMIN 1.7 g/dL (3.4-5.0)
[2019-08-22] MEDS ORDERED: ACETAMINOPHEN 650 MG SUPP PR PRN (16:00)
[2019-08-22] MEDS: METOPROLOL 1 MG/ML, 5ML IVPush SCH ×2 (16:03→20:14)
[2019-08-22] MEDS ORDERED: METOPROLOL TARTRATE 25 MG TAB PO SCH ×2 (18:00)
[2019-08-22] MEDS ORDERED: METHOCARBAMOL 750 MG TABLET PO SCH (19:00)
[2019-08-22 20:11] VITALS: BP 119/75
[2019-08-22] MEDS: MELATONIN 3 MG TABLET PO SCH (20:15)
[2019-08-23 01:31] VITALS: BP 140/80
[2019-08-23] MEDS: CLINDAMYCIN 300 MG CAPSULE PO SCH (05:37)
[2019-08-23] MEDS: METOPROLOL 1 MG/ML, 5ML IVPush SCH (05:38)
[2019-08-23 05:40] LABS: BASOPHILS # (AUTO) 0.02 x10^3/uL (0-0.1); BASOPHILS % (AUTO) 0 % (0-1); EOSINOPHILS # (AUTO) 0.38 x10^3/uL (0-0.4); EOSINOPHILS % (AUTO) 5 % (1-7); LYMPHOCYTES # (AUTO) 1.15 x10^3/uL (1-3.4); LYMPHOCYTES % (AUTO) 13 % (22-44); MD NO; MEAN CORPUSCULAR HEMOGLOBIN 27.1 pg (27.5-34.5); MEAN CORPUSCULAR HGB CONC 32.2 g/dL (33.2-36.2); MEAN CORPUSCULAR VOLUME 84.3 fL (81-97); MEAN PLATELET VOLUME 8.3 fL (7.4-10.4); MONOCYTES # (AUTO) 0.64 x10^3/uL (0.2-0.8); MONOCYTES % (AUTO) 8 % (2-9); NEUTROPHILS # (AUTO) 6.39 x10^3/uL (1.8-6.8); NEUTROPHILS % (AUTO) 74 % (42-75); PLATELET COUNT 269 x10^3/uL (130-400); RED CELL DISTRIBUTION WIDTH 15.6 % (9.4-14.8)
[2019-08-23 05:48] LABS: ALANINE AMINOTRANSFERASE 16 U/L (12-78); ALBUMIN 1.6 g/dL (3.4-5.0); ANION GAP 8 mmol/L (5-15); CALCIUM 7.8 mg/dL (8.5-10.1); CHLORIDE 117 mmol/L (98-107); CREATININE 1.92 mg/dL (0.7-1.3)
[2019-08-23 05:51] LABS: ALKALINE PHOSPHATASE 71 U/L (45-117); BILIRUBIN,TOTAL 0.5 mg/dL (0.2-1.0); CREATINE KINASE, TOTAL 305 U/L (39-308); TOTAL PROTEIN 6.3 g/dL (6.4-8.2)
[2019-08-23] MEDS: INSULIN LISPRO 100 UNITS/ML, PEN SQ-INSULIN SCH ×4 (07:00→20:17)
[2019-08-23 08:20] VITALS: BP 130/84
[2019-08-23] MEDS: MEROPENEM 1 GM in SODIUM CHLORIDE 0.9% 100 ML IV SCH ×2 (08:37→16:09)
[2019-08-23] MEDS ORDERED: PHARMACOKINETIC MONITORING MC PRN (09:00)
[2019-08-23] MEDS: PANTOPRAZOLE 40MG TABLET PO SCH (09:56)
[2019-08-23] MEDS: FLUTICASONE NASAL SPRAY 16GM NAS SCH (09:56)
[2019-08-23] MEDS: LINEZOLID PMX 600MG/300ML 300 ML IV SCH ×2 (09:56→22:04)
[2019-08-23] MEDS: TAMSULOSIN 0.4 MG CAP.ER.24H PO SCH (09:56)
[2019-08-23] MEDS: SENNA/DOCUSATE TABLET PO SCH (09:57)
[2019-08-23] MEDS: POTASSIUM CHLORIDE 10 MEQ in SODIUM CHLORIDE 0.45% 1,000 ML IV SCH (09:57)
[2019-08-23] MEDS: GABAPENTIN 300 MG CAPSULE PO SCH ×2 (09:57→20:00)
[2019-08-23] MEDS ORDERED: SODIUM CHLORIDE 0.9% 1,000 ML IV SCH (10:00)
[2019-08-23 13:05] VITALS: BP 141/91
[2019-08-23] MEDS: ACYCLOVIR 900 MG in SODIUM CHLORIDE 0.9% 250 ML IV SCH (13:34)
[2019-08-23] MEDS ORDERED: METOPROLOL 1 MG/ML, 5ML IVPush PRN (15:30)
[2019-08-23] MEDS ORDERED: MAGNESIUM SULFATE PMX 2GM/50ML 50 ML IV ONE (15:30)
[2019-08-23] MEDS: METOPROLOL TARTRATE 25 MG TAB PO SCH (18:23)
[2019-08-23 18:47] VITALS: BP 133/90
[2019-08-23] MEDS: MELATONIN 3 MG TABLET PO SCH (20:00)
[2019-08-24] MEDS: ACYCLOVIR 900 MG in SODIUM CHLORIDE 0.9% 250 ML IV SCH ×2 (00:23→15:39)
[2019-08-24 00:24] VITALS: BP 127/79
[2019-08-24] MEDS: POTASSIUM CHLORIDE 10 MEQ in SODIUM CHLORIDE 0.45% 1,000 ML IV SCH (01:12)
[2019-08-24] MEDS ORDERED: VANCOMYCIN 2,000 MG in SODIUM CHLORIDE 0.9% 500 ML IV SCH (04:00)
[2019-08-24] MEDS: MEROPENEM 1 GM in SODIUM CHLORIDE 0.9% 100 ML IV SCH ×2 (04:03→17:22)
[2019-08-24] MEDS: METOPROLOL TARTRATE 25 MG TAB PO SCH ×2 (05:21→18:24)
[2019-08-24 06:05] LABS: BASOPHILS # (AUTO) 0.03 x10^3/uL (0-0.1); BASOPHILS % (AUTO) 0 % (0-1); EOSINOPHILS # (AUTO) 0.41 x10^3/uL (0-0.4); EOSINOPHILS % (AUTO) 5 % (1-7); LYMPHOCYTES # (AUTO) 1.32 x10^3/uL (1-3.4); LYMPHOCYTES % (AUTO) 15 % (22-44); MD NO; MEAN CORPUSCULAR HEMOGLOBIN 26.9 pg (27.5-34.5); MEAN CORPUSCULAR HGB CONC 32.2 g/dL (33.2-36.2); MEAN CORPUSCULAR VOLUME 83.8 fL (81-97); MEAN PLATELET VOLUME 8.1 fL (7.4-10.4); MONOCYTES # (AUTO) 0.57 x10^3/uL (0.2-0.8); MONOCYTES % (AUTO) 6 % (2-9); NEUTROPHILS # (AUTO) 6.48 x10^3/uL (1.8-6.8); NEUTROPHILS % (AUTO) 74 % (42-75); PLATELET COUNT 345 x10^3/uL (130-400); RED BLOOD COUNT 3.37 x10^6/uL (4.38-5.82); RED CELL DISTRIBUTION WIDTH 15.6 % (9.4-14.8)
[2019-08-24 06:10] LABS: ALBUMIN 1.8 g/dL (3.4-5.0); ANION GAP 7 mmol/L (5-15); CALCIUM 7.4 mg/dL (8.5-10.1); CHLORIDE 115 mmol/L (98-107)
[2019-08-24 06:15] LABS: CREATININE 1.38 mg/dL (0.7-1.3)
[2019-08-24 06:16] LABS: ALANINE AMINOTRANSFERASE 22 U/L (12-78); ALKALINE PHOSPHATASE 72 U/L (45-117); BILIRUBIN,TOTAL 0.6 mg/dL (0.2-1.0); TOTAL PROTEIN 6.4 g/dL (6.4-8.2)
[2019-08-24 06:53] VITALS: BP 139/83
[2019-08-24] MEDS: INSULIN LISPRO 100 UNITS/ML, PEN SQ-INSULIN SCH ×4 (07:00→21:35)
[2019-08-24] MEDS: LINEZOLID PMX 600MG/300ML 300 ML IV SCH ×2 (09:51→21:38)
[2019-08-24] MEDS: TAMSULOSIN 0.4 MG CAP.ER.24H PO SCH (09:51)
[2019-08-24] MEDS: PANTOPRAZOLE 40MG TABLET PO SCH (09:51)
[2019-08-24] MEDS: SENNA/DOCUSATE TABLET PO SCH (09:51)
[2019-08-24] MEDS: GABAPENTIN 300 MG CAPSULE PO SCH ×2 (09:51→21:35)
[2019-08-24] MEDS: FLUTICASONE NASAL SPRAY 16GM NAS SCH (09:52)
[2019-08-24 12:19] VITALS: BP 147/83
[2019-08-24] MEDS ORDERED: LIDOCAINE-MPF 1%, 5ML ONE (12:27)
[2019-08-24 15:12] LABS: GLUCOSE, CSF 110 mg/dL (40-80); TOTAL PROTEIN,CSF 49 mg/dL (15-45)
[2019-08-24 20:27] VITALS: BP 141/78
[2019-08-24] MEDS: MELATONIN 3 MG TABLET PO SCH (21:35)
[2019-08-25 00:46] VITALS: BP 148/84
[2019-08-25] MEDS: ACYCLOVIR 900 MG in SODIUM CHLORIDE 0.9% 250 ML IV SCH ×2 (03:24→16:13)
[2019-08-25 05:31] LABS: BASOPHILS # (AUTO) 0.15 x10^3/uL (0-0.1); BASOPHILS % (AUTO) 2 % (0-1); EOSINOPHILS # (AUTO) 0.41 x10^3/uL (0-0.4); EOSINOPHILS % (AUTO) 5 % (1-7); LYMPHOCYTES # (AUTO) 1.37 x10^3/uL (1-3.4); LYMPHOCYTES % (AUTO) 17 % (22-44); MD NO; MEAN CORPUSCULAR HEMOGLOBIN 26.5 pg (27.5-34.5); MEAN CORPUSCULAR HGB CONC 31.7 g/dL (33.2-36.2); MEAN CORPUSCULAR VOLUME 83.5 fL (81-97); MEAN PLATELET VOLUME 8.5 fL (7.4-10.4); MONOCYTES # (AUTO) 0.66 x10^3/uL (0.2-0.8); MONOCYTES % (AUTO) 8 % (2-9); NEUTROPHILS # (AUTO) 5.71 x10^3/uL (1.8-6.8); NEUTROPHILS % (AUTO) 69 % (42-75); PLATELET COUNT 343 x10^3/uL (130-400); RED BLOOD COUNT 3.37 x10^6/uL (4.38-5.82); RED CELL DISTRIBUTION WIDTH 15.7 % (9.4-14.8)
[2019-08-25] MEDS: MEROPENEM 1 GM in SODIUM CHLORIDE 0.9% 100 ML IV SCH ×2 (05:33→17:26)
[2019-08-25] MEDS: METOPROLOL TARTRATE 25 MG TAB PO SCH ×2 (05:34→17:26)
[2019-08-25 05:53] LABS: CHLORIDE 116 mmol/L (98-107)
[2019-08-25 06:01] LABS: ALANINE AMINOTRANSFERASE 21 U/L (12-78); ALBUMIN 1.6 g/dL (3.4-5.0); ALKALINE PHOSPHATASE 67 U/L (45-117); ANION GAP 9 mmol/L (5-15); BILIRUBIN,TOTAL 0.6 mg/dL (0.2-1.0); CALCIUM 7.5 mg/dL (8.5-10.1); CREATININE 1.19 mg/dL (0.7-1.3); TOTAL PROTEIN 6.1 g/dL (6.4-8.2)
[2019-08-25 07:45] VITALS: BP 154/82
[2019-08-25] MEDS: FLUTICASONE NASAL SPRAY 16GM NAS SCH (09:55)
[2019-08-25] MEDS: LINEZOLID PMX 600MG/300ML 300 ML IV SCH ×2 (09:55→21:45)
[2019-08-25] MEDS: GABAPENTIN 300 MG CAPSULE PO SCH ×2 (10:07→21:45)
[2019-08-25] MEDS: SENNA/DOCUSATE TABLET PO SCH (10:07)
[2019-08-25] MEDS: INSULIN LISPRO 100 UNITS/ML, PEN SQ-INSULIN SCH ×4 (10:07→20:43)
[2019-08-25] MEDS: TAMSULOSIN 0.4 MG CAP.ER.24H PO SCH (10:07)
[2019-08-25] MEDS: ACETAMINOPHEN 325 MG TABLET PO PRN (10:07)
[2019-08-25] MEDS: PANTOPRAZOLE 40MG TABLET PO SCH (10:08)
[2019-08-25 12:10] VITALS: BP 134/70
[2019-08-25] MEDS: POTASSIUM CHLORIDE 10 MEQ in SODIUM CHLORIDE 0.45% 1,000 ML IV SCH (14:11)
[2019-08-25 19:15] VITALS: BP 144/85
[2019-08-25] MEDS: MELATONIN 3 MG TABLET PO SCH (21:45)
[2019-08-26] VITALS: BP 145/80
[2019-08-26] MEDS: ACETAMINOPHEN 325 MG TABLET PO PRN (00:42)
[2019-08-26] MEDS: ACYCLOVIR 900 MG in SODIUM CHLORIDE 0.9% 250 ML IV SCH ×2 (03:34→15:00)
[2019-08-26 06:04] VITALS: BP 157/80
[2019-08-26] MEDS: METOPROLOL TARTRATE 25 MG TAB PO SCH (06:07)
[2019-08-26] MEDS: POTASSIUM CHLORIDE 10 MEQ in SODIUM CHLORIDE 0.45% 1,000 ML IV SCH (06:07)
[2019-08-26] MEDS: MEROPENEM 1 GM in SODIUM CHLORIDE 0.9% 100 ML IV SCH ×2 (06:07→15:39)
[2019-08-26 06:12] LABS: BASOPHILS # (AUTO) 0.09 x10^3/uL (0-0.1); BASOPHILS % (AUTO) 1 % (0-1); EOSINOPHILS # (AUTO) 0.46 x10^3/uL (0-0.4); EOSINOPHILS % (AUTO) 6 % (1-7); LYMPHOCYTES % (AUTO) 19 % (22-44); MD NO; MEAN CORPUSCULAR HEMOGLOBIN 27.4 pg (27.5-34.5); MEAN CORPUSCULAR HGB CONC 32.9 g/dL (33.2-36.2); MEAN CORPUSCULAR VOLUME 83.4 fL (81-97); MEAN PLATELET VOLUME 8.1 fL (7.4-10.4); MONOCYTES # (AUTO) 0.64 x10^3/uL (0.2-0.8); MONOCYTES % (AUTO) 8 % (2-9); NEUTROPHILS # (AUTO) 5.11 x10^3/uL (1.8-6.8); NEUTROPHILS % (AUTO) 66 % (42-75); PLATELET COUNT 363 x10^3/uL (130-400); RED BLOOD COUNT 3.35 x10^6/uL (4.38-5.82)
[2019-08-26] MEDS: INSULIN LISPRO 100 UNITS/ML, PEN SQ-INSULIN SCH ×3 (07:00→16:00)
[2019-08-26] MEDS: SENNA/DOCUSATE TABLET PO SCH (09:55)
[2019-08-26] MEDS: GABAPENTIN 300 MG CAPSULE PO SCH (09:55)
[2019-08-26] MEDS: PANTOPRAZOLE 40MG TABLET PO SCH (09:55)
[2019-08-26] MEDS: LINEZOLID PMX 600MG/300ML 300 ML IV SCH (09:56)
[2019-08-26] MEDS: TAMSULOSIN 0.4 MG CAP.ER.24H PO SCH (09:56)
[2019-08-26] MEDS: FLUTICASONE NASAL SPRAY 16GM NAS SCH (10:05)
[2019-08-26 12:39] VITALS: BP 134/85
== END 2019-08-26 16:49 | disposition hospice, home (50) | DRG 472 ==
LOC: ED 15:19 → EDIP 20:50 → 5SO 23:43 → 3WST 08-14 15:30 → 4WST 08-22 13:00
PROVIDERS: ATTEND Hospitalist
PROC: 0RG20K1 Fusion of 2 or more Cervical Vertebral Joints with Nonautologous Tissue Substitute, Posterior Approach, Posterior Column, Open Approach (ICD-10-PCS; principal; 2019-08-20 07:00)
PROC: 009U3ZX Drainage of Spinal Canal, Percutaneous Approach, Diagnostic (ICD-10-PCS; 2019-08-24)
PROC: B01BZZZ Fluoroscopy of Spinal Cord (ICD-10-PCS; 2019-08-24)
DX: M47.12 Other spondylosis with myelopathy, cervical region (principal); C79.51 Secondary malignant neoplasm of bone; D68.69 Other thrombophilia; I24.8 Other forms of acute ischemic heart disease; E87.2 Acidosis; E87.0 Hyperosmolality and hypernatremia; N17.9 Acute kidney failure, unspecified; M47.816 Spondylosis without myelopathy or radiculopathy, lumbar region; M48.04 Spinal stenosis, thoracic region; M43.06 Spondylolysis, lumbar region; M19.90 Unspecified osteoarthritis, unspecified site; M51.24 Other intervertebral disc displacement, thoracic region; I48.0 Paroxysmal atrial fibrillation; I35.8 Other nonrheumatic aortic valve disorders; E87.6 Hypokalemia; C61 Malignant neoplasm of prostate; D64.9 Anemia, unspecified; E11.22 Type 2 diabetes mellitus with diabetic chronic kidney disease; E78.5 Hyperlipidemia, unspecified; I25.10 Atherosclerotic heart disease of native coronary artery without angina pectoris; I25.2 Old myocardial infarction; Z95.5 Presence of coronary angioplasty implant and graft; N18.3 Chronic kidney disease, stage 3 (moderate); I12.9 Hypertensive chronic kidney disease with stage 1 through stage 4 chronic kidney disease, or unspecified chronic kidney disease; Z66 Do not resuscitate; Z79.4 Long term (current) use of insulin; Z83.3 Family history of diabetes mellitus; Z85.46 Personal history of malignant neoplasm of prostate; Z88.0 Allergy status to penicillin; Z87.891 Personal history of nicotine dependence
CPT/HCPCS: 36415; 36600; 62328; 70553; 71045; 72040; 72050; 72110; 72141; 72156; 72157; 72158; 74230; 76770; 78452; 80048; 80053; 80069; 80076; 81001; 82550; 82607; 82803; 82945; 82962; 83036; 83735; 84100; 84145; 84157; 84443; 84484; 85025; 85610; 85730; 86850; 86900; 87040; 87070; 87075; 87081; 87205; 89051; 93005; 93017; 93306; 95938; 95941; 96374; 96376; C1713; G0378; J0131; J0133; J1100; J1644; J2020; J2185; J2270; J2310; J2405; J2704; J2785; J3010; J3370; J3480; A9502; A9575; C1762; J0330; J0360; J1815; J2370; J2800; J3475; J7030; J7040; J7050; J7120; U0001